=== PATIENT | female | born 1960 | race Caucasian/White ===

== ENCOUNTER 2018-08-15 13:02 | Day surgery (SDC) | payer BC, SELFPAY ==
--- NOTE | 2018-08-15 06:57 | W.COLOREPORT ---
Date of service: 08/15/18 Time of Service: 14:01 Colonoscopy Report Date of procedure: 08/15/18 Pre-op diagnosis general: Colon Cancer Screening Post-op diagnosis procedure note: same Procedure: Colonoscopy Surgeon: Rubina Armas Anesthesia proc note operative: other (General/ ASA 2/ Jose Maria Tong, CRISTHIAN ) Estimated blood loss (mL): 0 Pathology: none sent Complications: None Disposition: same day Indications: Mrs. Anglin is a pleasant 57 year old female who is here today for a screening colonoscopy. Her last Colonoscopy was in 2005 and was normal. Risks, benefits and complications have been reviewed. Complications include but are not limited to bleeding, pain, perforation, missed small lesion/polyp, sore throat, aspiration and adverse reaction to the medications. Questions were entertained and answered to their satisfaction and they wished to proceed. No guarantees were given or implied. Prep: Miralax/Dulcolax Procedure Start Time: 14:01 Procedure End Time: 14:42 Retraction Time: 17 Findings: Normal colon Very tortuous Procedure Description: After informed consent was obtained the patient was taken to the procedure room and placed in a left decubitous position. Monitors were applied and a time out was done. The patients name, date of , procedure, allergies to medications and metal in their body was reviewed. The patient was then sedated. Once sedated and comfortable a rectal exam was done. External exam was normal. Internal exam revealed a normal sphincter tone and no palpable masses. The scope was then introduced and retro-flexed. No internal hemorrhoids were identified. There were no masses or polyps in the rectum. The scope was then advanced to the cecum with some difficulty because of the colon being tortuous. The TI and appendiceal orifice were identified. The prep was good. The scope was then slowly retracted over 17 minutes back into the rectum. There were no polyps and no Diverticula. The scope was removed and the patient was woken up and taken back to Same day surgery in stable condition. The patient tolerated the procedure well and there were no immediate complications. Follow up: The patient should follow up in 10 years unless they develop changes in bowel habits or other new gastrointestinal complaints.
--- NOTE | 2018-08-15 06:59 | W.PM.DSUDISC ---
Discharge Plan Disposition Patient Disposition: HOME Condition: Good Discharge Details Reason For Visit: Colon Cancer Screening Attending Provider: Rubina Armas Primary Care Provider: Janee Mitchell Home Meds and New Rx's Prescriptions: Continued ascorbic acid (vitamin C) [Vitamin C] 500 MG capsule, extended release 500 mg PO DAILY RF: 0 cholecalciferol (vitamin D3) [Vitamin D3] 2,000 UNIT capsule 2,000 unit PO DAILY RF: 0 magnesium amino acid chelate 100 MG tablet 100 mg PO DAILY RF: 0 Female Hormonal Bal 2 cap PO .BEFORE MENSES RF: 0 Vitamin B 1 tab PO DAILY RF: 0 omega-3 fatty acids-fish oil 1 EACH capsule 2 ea PO DAILY RF: 0 garlic 300 mg Capsule 300 mg PO BID RF: 0 ginkgo biloba 120 mg Tablet 240 mg PO BID RF: 0 Discontinued polyethylene glycol 3350 17 gram/dose powder 238 g PO ONCE Qty: 238 RF: 0 bisacodyl [Dulcolax (bisacodyl)] 5 mg tablet,delayed release (DR/EC) 5 mg PO ONCE Qty: 4 RF: 0 Discharge Instructions Instructions: Colonoscopy (DC) Additional Instructions: Findings: Normal colon Follow up: 10 years Please call if you develop: fevers >101.5 Nausea or Vomiting Abdominal pain that is not transient DAY SURGERY UNIT POST COLONOSCOPY INSTRUCTIONS 1. Because there will be medication in your system for the next 24 hours, you may feel a little sleepy. Your coordination will be affected. Therefore: a. Do not drive or operate dangerous equipment for 24 hours. b. Do not drink alcohol beverages for 24 hours (not even beer). c. Plan to go home and rest for the day. 2. Generally there are no restrictions on your activity after a day or so has gone by, but you may feel a bit fatigued for a few days. 3 After you arrive home you may have a light meal and return to a normal diet as you can tolerate it without feeling sick to your stomach. 4. After surgery, you may feel pain or discomfort. This should be only transient, but if it persists please contact your doctor. 5. If there are any questions regarding the findings of your procedure, please feel free to contact your doctor. 6. If you are unable to contact your doctor with a problem, contact the hospital at [phone]. 7. Continue all your regular medications unless directed otherwise. I understand the above instructions and have no questions. Signature of Patient or Responsible Adult Escort Date/Time Name of Responsible Adult Escort Signature of Nurse Date/Time Activity:: Activity as Tolerated Diet:: As Tolerated Discharge Orders Discharge Orders: Discharge Order (Routine); Ordered 08/15/18 Ordered By: Rubina Armas DS: Diagnosis Discharge Diagnosis (1) S/P colonoscopy: Status: Acute
[2018-08-15 13:18] VITALS: BP 126/79; PULSE 64; RESP 16; TEMP 36.9; O2SAT 96
[2018-08-15] MEDS: Lactated Ringers 1,000 ML 80 ML IV (13:43)
[2018-08-15 15:20] VITALS: BP 106/61; PULSE 54; RESP 16; TEMP 36.7; O2SAT 100
== END 2018-08-15 16:24 | disposition home or self-care (01) ==
LOC: SUR 13:04
PROVIDERS: PCP Nurse Practitioner; Visit Provider Surgery
PROC: 0DJD8ZZ Inspection of Lower Intestinal Tract, Via Natural or Artificial Opening Endoscopic (ICD-10-PCS; CPT 45378; principal; 2018-08-15 12:30)
DX: Z12.11 Encounter for screening for malignant neoplasm of colon (principal); K63.89 Other specified diseases of intestine
CPT/HCPCS: 45378

== ENCOUNTER 2018-10-18 11:05 | Outpatient (REF) | payer BC, SELFPAY ==
[2018-10-18 22:31] LABS: ALT 50 U/L (12-78); AST 44 U/L (15-37); Albumin 3.8 g/dL (3.4-5.0); Alkaline Phosphatase 64 U/L (46-116); Anion Gap 11.3 mmol/L (3-11); BUN 17 mg/dL (7-18); Bilirubin, Total 0.4 mg/dL (0.2-1.0); CO2 24.7 mmol/L (21.0-32.0); CREATININE 0.74 mg/dL (0.55-1.02); Calcium 9.3 mg/dL (8.5-10.1); Chloride 106 mmol/L (98-107); Glucose 99 mg/dL (70-100); Potassium 4.7 mmol/L (3.5-5.1); Sodium 142 mmol/L (136-145); TSH (W/Ref FT4) 1.95 uIU/mL (0.358-3.74); Total Protein 6.4 g/dL (6.4-8.2)
[2018-10-18 23:01] LABS: Calculated LDL 141; Cholesterol 255 mg/dL (50-200); HDL Cholesterol 103 mg/dL (40-60); Triglyceride 57 mg/dL (30-150)
== END 2018-10-18 11:25 ==
LOC: NCHCN 11:05
PROVIDERS: PCP Nurse Practitioner; Visit Provider Nurse Practitioner
DX: Z00.00 Encounter for general adult medical examination without abnormal findings (principal); Z13.29 Encounter for screening for other suspected endocrine disorder; Z13.228 Encounter for screening for other metabolic disorders; Z13.220 Encounter for screening for lipoid disorders
CPT/HCPCS: 80053; 80061; 83721; 84443

== ENCOUNTER 2019-01-18 00:49 | Outpatient (CLI) | payer OTHER, SELFPAY ==
--- NOTE | 2019-01-18 08:15 | DI.MAMMO_ITS ---
EXAM: MG MAMMO SCREENING CLINICAL HISTORY: SCREENING, Z12.39. TECHNIQUE: Mammograms were interpreted according to the usual protocol including computer analysis w [employer] CAD system, tomosynthesis and C-view imaging. COMPARISON: No exams were available for comparison FINDINGS: The breast tissue is heterogeneously radiodense, which lowers the sensitivity of the study. There is no evidence of a dominant mass. There are no suspicious calcifications and there has been no signifi cant interval change when compared with prior images. IMPRESSION: No evidence of malignancy, category 1, yearly screening mammography is recommended. BI-RADS category C. BI-RADS Cat 1 - Negative Breast Density - Category C - Heterogeneously dense
== END 2019-01-18 01:09 ==
PROVIDERS: PCP Nurse Practitioner; Visit Provider Nurse Practitioner
DX: Z12.31 Encounter for screening mammogram for malignant neoplasm of breast (principal)
CPT/HCPCS: 77063; 77067

== ENCOUNTER 2019-06-27 18:20 | Emergency (ER) | payer OTHER, SELFPAY ==
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
[2019-06-27 18:24] VITALS: BP 114/96; PULSE 82; RESP 20; TEMP 36.8; O2SAT 100
[2019-06-27] MEDS: Normal Saline 1,000 ML 1000 ML IV (18:45)
[2019-06-27] MEDS: Ketorolac 30 MG/ML VIAL IVP (18:45)
[2019-06-27 18:52] LABS: Abs Immature Grans 0.01 k/cumm (0.0-0.09); Absolute Basophil Count 0.01 k/cumm (0.0-0.2); Absolute Eosinophil Count 0.03 k/cumm (0.0-0.7); Absolute Lymphocyte Count 1.07 k/cumm (1.2-3.4); Absolute Monocyte Count 0.71 k/cumm (0.11-0.7); Absolute Neutrophil Count 9.15 k/cumm (1.2-6.7); Basophils % 0.1; Eosinophils % 0.3; HCT 38.8 % (36.0-46.0); HGB 13.3 g/dL (12.0-15.5); Immature Grans % 0.1 %; Lymphocytes % 9.7; Mean Corp. HGB Concentration 34.3 g/dL (32.0-36.0); Mean Corpuscular Volume 96.3 fL (80-95); Mean Platelet Volume 9.5 fL (8.0-11.0); Monocytes % 6.5; Neutrophils % 83.3; Platelet Count 217 x1000/uL (130-400); RBC 4.03 m/cumm (4.00-5.20); RBC Distribution Width 12.3 % (11.7-14.6); White Blood Cell Count 10.99 k/cumm (4.4-10.8)
[2019-06-27] MEDS: HYDROmorphone 2 MG/ML VIAL 1 MG IVP (19:00)
[2019-06-27 19:04] LABS: ALT 43 U/L (14-59); AST 35 U/L (15-37); Albumin 4.2 g/dL (3.4-5.0); Alkaline Phosphatase 56 U/L (46-116); Anion Gap 13.2 mmol/L (3-11); BUN 15 mg/dL (7-18); Bilirubin, Total 0.7 mg/dL (0.2-1.0); CO2 23.8 mmol/L (21.0-32.0); CREATININE 0.88 mg/dL (0.55-1.02); Calcium 9.4 mg/dL (8.5-10.1); Chloride 102 mmol/L (98-107); Glucose 121 mg/dL (74-106); Potassium 3.1 mmol/L (3.5-5.1); Sodium 139 mmol/L (136-145); Total Protein 6.8 g/dL (6.4-8.2)
--- NOTE | 2019-06-27 19:20 | DI.CT_ITS ---
EXAM: CT RENAL COLIC WO CLINICAL HISTORY: severe right sided flank pain TECHNIQUE: Noncontrast COMPARISON: ABD/PELVIS WO W CONTRAST from 03/02/2016 FINDINGS: There is mild left hydronephrosis secondary to a stone in the distal ureter, just above the ureterov esical junction measuring 4-5 millimeters. There is mild stranding around the left ureter. A tiny n onobstructing stone is seen in the mid right kidney. There are no perinephric collections or evidenc e of a mass. Urinary bladder is nearly empty. The heart size is normal. The liver, gallbladder, spleen, pancreas and adrenals are unremarkable. T he appendix appears normal. There is a moderate to increased quantity of stool. There is no bowel w all thickening or dilatation. The uterus appears normal in size, decreasing when compared with the p revious exam. The ovaries are not definitely seen. The previously noted right-sided cystic pelvic m ass is no longer present. There are degenerative changes in the lumbar spine, greatest at L5-S1. IMPRESSION: Mild left hydronephrosis secondary to a 5 millimeter stone just above the ureterovesical junction.
--- NOTE | 2019-06-27 19:38 | DI.VRAD_ITS ---
PROCEDURE INFORMATION: Exam: CT Abdomen And Pelvis Without Contrast Exam date and time: 06/27/2019 6:33 PM Age: 58 years old Clinical indication: Abdominal pain; Lower; Prior surgery; Surgery date: 6+ months; Surgery type: Ovarian cyst removed, ; patient HX: Severe left flank pain per patient, nausea, TECHNIQUE: Imaging protocol: Computed tomography of the abdomen and pelvis without contrast. Radiation optimization: All CT scans at this facility use at least one of these dose optimization techniques: automated exposure control; mA and/or kV adjustment per patient size (includes targeted exams where dose is matched to clinical indication); or iterative reconstruction. COMPARISON: CT ABD/PELVIS WO W CONTRAST 03/02/2016 9:19 AM FINDINGS: Liver: Normal. No mass. Gallbladder and bile ducts: Normal. No calcified stones. No ductal dilation. Pancreas: Normal. No ductal dilation. Spleen: Normal. No splenomegaly. Adrenals: Normal. No mass. Kidneys and ureters: Left hydroureteronephrosis. There is a distal left ureteral calculus measuring 3 x 2 mm. This is just above the level of the bladder. There is mild stranding of the Periureteral fat proximally. No additional renal calculi are seen on the left side. Right kidney contains a punctate 1 mm nonobstructive central calculus. Stomach and bowel: Unremarkable. No obstruction. No mucosal thickening. Appendix: No evidence of appendicitis. Intraperitoneal space: Unremarkable. No free air. No significant fluid collection. Vasculature: Unremarkable. No abdominal aortic aneurysm. Lymph nodes: Unremarkable. No enlarged lymph nodes. Bladder: See Kidneys And Ureters Finding. Reproductive: Unremarkable as visualized. Bones/joints: Degenerative lumbar spine disease.. No acute fracture. Soft tissues: Unremarkable. IMPRESSION: 1. Left hydroureter with a distal ureteral 3 x 2 mm obstructing calculus. 2. Punctate 1 mm central nonobstructing right renal calculus. 3. Degenerative lumbar spine disease. No acute compression fractures. Dictated and Authenticated by: Eduardo De La Rosa MD. Ordering:JOSE Berry MD
[2019-06-27] MEDS: Tamsulosin 0.4 MG CAPCR PO (19:55)
[2019-06-27 20:48] LABS: Bilirubin Negative (Negative); Blood Moderate (Negative); Clarity Clear (Clear); Glucose Negative (Negative); Ketones 15 mg/dL (Negative); Leukocyte Esterase Moderate (Negative); Nitrite Negative (Negative); Specific Gravity 1.015 (1.005-1.025); Urobilinogen 0.2 EU/dL (Up TO 0.2); pH 8.5 (5-8)
[2019-06-27 21:03] LABS: Bacteria Moderate HPF (Negative); C & S Indicated? Yes; Epithelial Cells Few HPF (Negative); WBC 20-50 HPF (0-5)
[2019-06-27 21:18] LABS: Casts Negative LPF (Negative); Crystals Negative HPF (Negative); Mucus Negative (Negative)
[2019-06-27 21:32] VITALS: BP 124/76; PULSE 59; RESP 16; TEMP 37.1; O2SAT 98
[2019-06-27] MEDS: Cephalexin 500 MG CAP 1000 MG PO (21:35)
[2019-06-27] MEDS: HYDROmorphone 2 MG TAB PO (21:45)
== END 2019-06-27 21:40 | disposition home or self-care (01) ==
PROVIDERS: Emergency Provider Physician Assistant; PCP Nurse Practitioner
DX: N39.0 Urinary tract infection, site not specified (principal); N20.0 Calculus of kidney
CPT/HCPCS: 80053; 87077; 96361; 96374; 96375; 99285; 74176; 81003; 81015; 85025; 87086; 87186; 99284; J1885

== ENCOUNTER 2022-07-27 01:47 | Outpatient (CLI) | payer BC, SELFPAY ==
--- NOTE | 2022-07-27 | DI.MAMMO_ITS ---
Exam(s) MAMMO SCREENING EXAM: MAMMO SCREENING CLINICAL HISTORY: SCREENING MAMMO FOR BREAST CANCER Z12.39 TECHNIQUE: Mammograms were interpreted according to the usual protocol including computer analysis w [employer] CAD system, tomosynthesis and C-view imaging. COMPARISON: 2013 through 2018 FINDINGS: The breasts are composed of heterogeneously dense fibroglandular densities, Breast Density category C . No suspicious masses or suspicious microcalcifications are seen. No skin thickening or abnormal axillary lymph nodes are seen. There has been no significant change from prior exams. IMPRESSION: BI-RADS Category 1, Negative mammogram. Yearly screening mammography is recommended. Breast Density Category C, heterogeneously Dense. The mammogram demonstrates the patient's breast tissue is dense. Dense breast tissue is very common a nd is not abnormal but dense breast tissue can make it harder to find cancer on a mammogram. Also, de nse breast tissue may increase breast cancer risk. This information about the result of the mammogram report was provided to the patient to raise their awareness. Use this report when you speak with the patient about their risks for breast cancer, which includes their family history. At that time, you may recommend additional screening tests (Ultrasound or MRI) as they might be useful based on their r isk. A negative radiographic report should not delay biopsy if a dominant or clinically suspicious mass is present. Up to ten percent of cancers are not identified on mammography. A negative report may reinforce clinical impression. Adenosis and dense breasts may obscure an underlying neoplasm. False positive reports average 6 to 10%.
== END 2022-07-27 02:07 ==
LOC: DI 01:48
PROVIDERS: PCP Nurse Practitioner; Visit Provider Nurse Practitioner Family
DX: Z12.31 Encounter for screening mammogram for malignant neoplasm of breast (principal)
CPT/HCPCS: 77063; 77067

== ENCOUNTER 2022-08-12 14:25 | Outpatient (REF) | payer BC, SELFPAY ==
--- NOTE | 2022-08-12 13:40 | PAPFT_PTH ---
PATIENT: Miriam Hickman [id number] AGE/SX: 61/F ROOM: RE08/12/[address]: NEVIN BOATENG : 1960 BED: DIS: 08/12/2022 SPEC #: [id number] RECD: 08/13/22 12:54 STATUS: HUSSAIN REQ #: [id number] SINA: 08/12/22 13:[address]: Nevin Boateng DEPT: [facility] Cytology RECD BY: Shayla Omer ENTERED: 08/13/22 12:55 SP TYPE: PAPFT OTHR DR: Janee Mitchell Tissues: 1 - CX/ENDOCX FOR PAP SMEARS Procedures: PAP THIN PREP/UVM Screening HPV DNA PROBE Comments: [id number]
[2022-08-12 20:02] LABS: ALT 54 U/L (14-59); AST 41 U/L (15-37); Alkaline Phosphatase 66 U/L (46-116); Anion Gap 9.4 mmol/L (3-11); BUN 17 mg/dL (7-18); Bilirubin, Total 0.6 mg/dL (0.2-1.0); CO2 25.6 mmol/L (21.0-32.0); CREATININE 0.7 mg/dL (0.55-1.02); Calcium 9.8 mg/dL (8.5-10.1); Calculated LDL 149 mg/dL (<100); Chloride 107 mmol/L (98-107); Cholesterol 256 mg/dL (<200); Estimated GFR 97.72 (mL/min/1.73m2); Glucose 99 mg/dL (74-106); HDL Cholesterol 93 mg/dL (40-60); Potassium 4.3 mmol/L (3.5-5.1); Sodium 142 mmol/L (136-145); Total Protein 6.9 g/dL (6.4-8.2); Triglyceride 70 mg/dL (<150)
== END 2022-08-12 14:26 | disposition home or self-care (01) ==
LOC: NCHCN 14:25
PROVIDERS: PCP Nurse Practitioner; Visit Provider Nurse Practitioner Family
DX: Z13.220 Encounter for screening for lipoid disorders (principal); R79.89 Other specified abnormal findings of blood chemistry; Z00.00 Encounter for general adult medical examination without abnormal findings; Z12.4 Encounter for screening for malignant neoplasm of cervix; Z11.51 Encounter for screening for human papillomavirus (HPV)
CPT/HCPCS: 80053; 80061; 88142; 87624

== ENCOUNTER 2024-02-21 16:33 | Outpatient (REF) | payer BC, SELFPAY | END 2024-02-21 16:34 | disposition home or self-care (01) | LOC: LBN 16:33 | PROVIDERS: Visit Provider Nurse Practitioner Family | DX: N30.00 Acute cystitis without hematuria (principal) | CPT/HCPCS: 87077; 87086; 87186 ==

== ENCOUNTER 2024-02-23 13:16 | Outpatient (REF) | payer BC, SELFPAY ==
--- OUTSIDE RECORDS SUMMARY | 2024-02-23 13:18 | XMS_ITS | Encounter Summary ---
[facility] [place] [address] Care Team Providers Care Vocational Rehabilitation Teacher Name Role Phone JimmieJanee hunter APRN Primary Care Provider Reason for Visit * Reason Onset Date Comments Abdominal Pain 04/10/2016 Encounter Details Date Type Department Care Team (Late st Contact Info) Description 04/10/2016 Telephone [place] [id number] Tiffanie Cobos, RN Abdominal Pain Social History Tobacco Use Types Packs/Day Years Used Date Smoking Tobacco: Former Cigarettes 0.1 3 1 05/12/1982 - 03/12/1986 Smokeless Tobacco: Never Alcohol Use Standard Drinks/Week Comments Yes 14 (1 standard drink = 0.6 oz pu re alcohol) Sex and Gender Information Value Date Recorded Sex Assigned at Not on file Gender Identity Not on file Sexual Orientation Not on file documented as of this encounter Miscellaneous Notes * Telephone Encounter - Tiffanie Cobos RN - 04/10/2016 4:14 PM EST Caller: Miriam Rawls Learning Needs Assessment Reviewed: Yes Subjective Patient presents with: Abdominal Pain Objective/Assessment Symptom onset: this week Location: mid-abdomen Duration: 4 days Characteristics: cramping in mid abdomen, below navel above pubic bone Aggravating factors: n/a Relieving factors: n/a Timin days postop Severity: mild Pertinent Past Medical History: 03/23/2016 laparoscopic bilateral salpingo- oophorectomy, removal ofadnexal masses ?? Plan Intervention/Plan/ Follow Up: Maddie reports she has the cramping that just feels odd. She has not taken ibuprofen or acetaminophen in a while and doesn't feel this cramping warrants taking anything. She started back to yoga and does do exercises for core strength but hasn't been doing sit-ups oranything. She has been eating, voiding, and having bowel movements without difficulty. Has not had any vaginal bleeding. Reassured Maddie that her yoga was probably fine. She will call the clinic if cramping worsens or if she has another question/concern. documented in this encounter Plan of Treatment Not on file documented as of this encounter Visit Diagnoses Not on filedocumented in this encounter Care Teams Vocational Rehabilitation Teacher Relationship Specialty Start Date End Date Janee Mitchell APRN [address] [place] [address] PCP - General Family Medicine 03/12/16 documented as of this encounter
--- OUTSIDE RECORDS SUMMARY | 2024-02-23 13:18 | XMS_ITS | Encounter Summary ---
Author Organization [facility] Address [facility] [place] [address] Care Team Providers Care School Teacher Name Role Phone Janee Mitchell APRN Primary Care Provider Encounter Details Date Type Department Care Team (Latest Contact Info) Description 10/19/2016 8:19 AM EDT - 10/19/2016 11:59 PM EDT Hospital [place] [address] Janee Mitchell APRN [address] [place] [address] Encounter for screening mammogram for breast cancer Discharge Disposition: Home Social History Tobacco Use Types Packs/Day Years [...] on file documented as of this encounter Medications at Time of Discharge Medication Sig Dispensed Refills Start Date End Date acetaminophen (TYLENOL) 500 mg Tablet Take 2 tablets by mouth every 6 hours as needed for Pain. 1 03/23/2016 ibuprofen (ADVIL;MOTRIN) 600 mg Tablet Take 1 tablet by mouth every 6 hours as needed for Pain. 03/23/2016 MILK THISTLE ORAL Take by mouth as needed. AA COMB.NO3/B/MV-AO4/MN/MIN AA (B [id number] COMB3-AO CB4 ORAL) Take by mouth as needed. JANIA'S WORT ORAL Take by mouth as needed. MAGNESIUM CARBONATE ORAL Take by mouth. MULTIVITAMIN ORAL 11/12/2009 documented as of this encounter Plan of Treatment Not on file documented as of this encounter Procedures Procedure Name Priority Date/Time Associated Diagnosis Comments MAMMO SCREENING CAD AND ARTHUR BILATERAL Routine 10/19/2016 8:39 AM EDT Encounter for screening mammogram for breast cancer documented in this encounter Results * Mammo Screen CAD and Arthur Bilat (Generic) (10/19/2016 8:39 AM EDT) Anatomical Region Laterality Modality Breast Bilateral Mammography Narrative 10/19/2016 8:48 AM EDT BILATERAL MAMMOGRAPHY REASON FOR EXAM: Screening TECHNIQUE: CC and MLO views were obtained of each breast using standard 2-D mammography as well as 3-D tomosynthesis. Computer aided detection was used. This is compared with prior images. FINDINGS: ??The breasts are heterogeneously dense, which may obscure small masses. There are no suspicious microcalcifications, masses, or areas of distortion. The pattern is stable. CONCLUSION: No mammographic evidence of malignancy. RECOMMENDATION: The [employer] [place] [employer] and The Society of Breast Imaging recommend annual screening beginning at age 40 for the general female population. Screening should continue as long as a woman is in good health and is expected to live 10 more years or longer. All women should be familiar with the known benefits, limitations, and potential harms linked to breast cancer screening. They should also know how their breasts normally look and feel and report any breast changes to a health care provider right away. Some women - because of their family history, a genetic tendency, or certain other factors - should be screened with MRIs along with mammograms. (The number of women who fall into this category is very small.) The patient and health care provider should discuss the patient history and decide if earlier screening and breast MRI are appropriate. A result letter has been sent to this patient by [facility]. BIRADS CATEGORY 1: NEGATIVE Janee Mitchell BUTT WELDER IMG MAMMO ORDERABLES documented in this encounter Visit Diagnoses Diagnosis Encounter for screening mammogram for breast cancer documented in this encounter Care Teams School Teacher Relationship Specialty Start Date End Date Janee Mitchell APRN [address] [place] [address] PCP - General Family Medicine 03/12/16 documented as of this encounter
--- OUTSIDE RECORDS SUMMARY | 2024-02-23 13:18 | XMS_ITS | Clinical Summary ---
Author Organization [facility] Address [facility] [place] [address] Care Team Providers Care Cable Mock Up Assembler Name Role Phone Stephen Janee LOCKE Primary Care Provider Allergies Active Allergy Reactions Criticality Noted Date Comments Chlorpheniramine-Phenylpropan Itching 2015 Hymenoptera Allergenic Extract Other (See Comments) 03/23/2016 Swelling Medications Medication Sig Dispensed Refills Start Date End Date Status MULTIVITAMIN ORAL 11/12/2009 Active MAGNESIUM CARBONATE ORAL Take by mouth. Active MILK THISTLE ORAL Take by mouth as needed. Active AA COMB.NO3/B/MV-AO4/MN/M IN AA (B [id number] COMB3-AO CB4 ORAL) Take by mouth as needed. Active JANIA'S WORT ORAL Take by mouth as needed. Active acetaminophen (TYLENOL) 500 mg Tablet Take 2 tablets by mouth every 6 hours as needed for Pain. 1 03/23/2016 Active ibuprofen (ADVIL;MOTRIN) 600 mg Tablet Take 1 tablet by mouth every 6 hours as needed for Pain. 03/23/2016 Active Active Problems Problem Noted Date Diagnosed Date Abnormal LFTs 10/27/2015 Resolved Problems Problem Noted Date Diagnosed Date Resolved Date Ovarian cystadenoma 04/20/2016 04/21/20 16 Pelvic mass in female 03/12/20162015 h/o ASCUS 10/27/2015 04/21/2016 Social History Tobacco Use Types Packs/Day Years Used Date Smoking Tobacco: Former Cigarettes 0.1 3 1 05/12/1982 - 03/12/1986 Smokeless Tobacco: Never Alcohol Use Standard Drinks/Week Comments Yes 14 (1 standard drink = 0.6 oz pu re alcohol) Sex and Gender Information Value Date Recorded Sex Assigned at Not on file Gender Identity Not on file Sexual Orientation Not on file Last Filed Vital Signs Vital Sign Reading Time Taken Comments Blood Pressure 116/59 04/20/2016 3:49 PM EST Pulse 69 04/20/2016 3:49 PM EST Temperature 37.1 ??C (98.8 ??F) 03/23/2016 5:00 PM ES T Respiratory Rate 16 03/23/2016 6:00 PM EST Oxygen Saturation 100% 04/20/2016 3:49 PM EST Inhaled Oxygen Concentration - - Weight 68.3 kg (150 lb 9.2 oz) 04/20/2016 3:49 P M EST Height 172.7 cm (5' 7.99) 04/20/2016 3:49 PM ES T Body Mass Index 22.9 04/20/2016 3:49 PM EST Plan of Treatment Health Maintenance Due Date Last Done Comments CT Colonography 1959 Colonoscopy 1959 Colorectal Cancer Screening 1959 FIT DNA 1959 FIT 1959 Sigmoidoscopy (10 year) with FIT yearly 1959 Sigmoidoscopy 1959 Tetanus/Diphtheria/Pertussis Vaccines (1 - Tdap) 09/24 HPV test 09/24/1989 PAP Smear 09/24/1989 Breast Cancer Share Decision Needed 1999 Zoster vaccine (1 of 2) 09/24/2009 Advance Directive 09/24/2014 Breast Cancer screening 10/19/2018 10/19/2016 Covid-19 Vaccine (1 - season) 2024 Influenza (Flu) vaccine (1 o f 1 - Influenza standard series) 01/02/2024 HIV screen Completed 10/17/2015 Hepatitis C Screening Completed 10/17/2015 Procedures Procedure Name Priority Date/Time Associated Diagnosis Comments MAMMO SCREENING CAD AND ARTHUR BILATERAL Routine 10/19/2016 8:39 AM EDT Encounter for screening mammogram for breast cancer EXTERNAL LAB INFECTIOUS DISEASE RESULTS PANEL Routine 10/17/2015 from Last 3 Months or Most Recently Relevant to Health Maintenance Results * Mammo Screen CAD and Arthur [...] No mammographic evidence of malignancy. RECOMMENDATION: The [place] [employer] and The Society of [...] Center. BIRADS CATEGORY 1: NEGATIVE Janee Mitchell APRN IM MAMMO ORDERABLES * (ABNORMAL) Infectious Disease External Results (10/17/2015) HIV 1/2 Ab neg(External Lab) Hepatitis B Surface Antibody neg Hepatitis B Core Antibody neg Hepatitis B Surface Antigen Negative Hepatitis C Antibody neg 10/17/2015 Historical Provider MD POINT OF CARE JOSE T ORDERABLES from Last 3 Months or Most Recently Relevant to Health Maintenance Advance Directives * Full Code (Latest Code Status on File) Date Activated Date Inactivated Comments 03/23/2016 1:06 PM 03/23/2016 10:10 PM Question Answer Comments Does patient have capacity to make decision: Yes * Full Code Date Activated Date Inactivated Comments 03/23/2016 11:23 AM 03/23/2016 1:06 PM Question Answer Comments Does patient have capacity to make decision: Yes Care Teams Cable Mock Up Assembler Relationship Specialty Start Date End Date Janee Mitchell, RN WOUND [address] [place] [address] PCP - General Family Medicine 03/12/16
--- OUTSIDE RECORDS SUMMARY | 2024-02-23 13:18 | XMS_ITS | Encounter Summary ---
Author Organization [facility] Address [facility] [place] [address] Care Team Providers Care Assistant Commissioner Name Role Phone JimmieJanee hunter APRN Primary Care Provider Reason for Visit * Reason Comments Post Op Encounter Details Date Type Department Care Team (Late st Contact Info) Description 04/20/2016 3:30 PM EST Office Visit [place] [id number] Helene Manriquez MD [facility] DR GYNECOLOGY [place] [address] Ovarian cystadenoma, unspecified laterality (Primary Dx); Pelvic mass in female; Surgical menopause; Hemorrhagic ovarian cyst Social History Tobacco Use Types Packs/Day Years [...] on file documented as of this encounter Last Filed Vital Signs Vital Sign Reading Time Taken Comments Blood Pressure 116/59 04/20/2016 3:49 PM EST Pulse 69 04/20/2016 3:49 PM EST Temperature - - Respiratory Rate - - Oxygen Saturation 100% 04/20/2016 3:49 PM EST Inhaled Oxygen Concentration - - Weight 68.3 kg (150 lb 9.2 oz) 04/20/2016 3:49 P M EST Height 172.7 cm (5' 7.99) 04/20/2016 3:49 PM ES T Body Mass Index 22.9 04/20/2016 3:49 PM EST documented in this encounter Progress Notes * Shanthi Tamayo MD - 04/20/2016 3:30 PM EST Division of [place] [address] Follow-Up Visit: Postoperative Visit: Patient Active Problem List Diagnosis Code ??? Abnormal LFTs R79.89 ??? h/o ASCUS R87.610 ??? Pelvic mass in female R19.00 Subjective: Miriam Rawls returns to the office today for her postoperative visit. On 03/23/2016 she underwent a laparoscopic bilateral salpingo-oophorectomy, removal of adnexal masses. Her postoperativecourse was uncomplicated. She has been doing well since surgery aside from some fatigue. She has not needed narcotic pain medications and is having regular bowel movements. She is eating well and is back to doing some yoga. She does report some mild cramping in the afternoon after she started yoga but did not have any sharp pains. No hot flushes, night sweats. Mild heat intolerance. Having vague sensation of mood changes that she has difficulty putting into words. ROS: She denies fevers, chills, dysuria, incisional concerns, abdominal pain, vaginal bleeding, nausea, vomiting or diarrhea. All systems reviewed and are otherwise negative. Objective: Vitals: 04/20/16 1549 BP: 116/59 Pulse: 69 SpO2: 100% Weight: 68.3 kg (150 lb 9.2 oz) Height: 172.7 cm (5' 7.99) Body mass index is 22.9 kg/(m^2). Body surface area is 1.81 meters squared. Physical Exam Constitutional: She is oriented to person, place, and time. She appears well- developed and well-nourished. HENT: Head: Normocephalic and atraumatic. Eyes: Pupils are equal, round, and reactive to light. Neck: Normal range of motion. Neck supple. Abdominal: Soft. She exhibits no distension. There is no tenderness. 3 port incisions are well-healing Musculoskeletal: Normal range of motion. Neurological: She is alert and oriented to person, place, and time. Skin: Skin is warm and dry. Psychiatric: She has a normal mood and affect. Surgical Pathology: 03/23/2016 DIAGNOSIS A - Right tube and ovary, salpingo-oophorectomy: - Ovarian mucinous cystadenoma. - Benign fallopian tube with fimbria adherent to ovary. B - Left fallopian tube and ovary, salpingo-oophorectomy: - Ovary with hemorrhagic corpus luteum and simple inclusion cysts. - Benign fallopian tube with paratubal cyst. Pelvic washings: DIAGNOSIS Negative for Malignancy Assessment and Plan: Miriam Rawls is a 55 y.o. with a benign right mucinous cystadenoma and a benign left hemorrhagic corpus luteal cyst. It does not appear that she had exacerbated menopausal symptoms. She is doing well postoperatively and is advised that she may resume full activities at 6 weeks postoperatively. I reviewed her pathology with her and have given her copies of her pathology report and operative note for her records. Given the benign nature of her disease, she thankfully does not require any further gynecologic oncology care and is kindly referred back to her usual providers for ongoing care. Patient seen and evaluated with attending DEICER INSPECTOR PNEUMATIC ONC HSANTHI Bella MD PGY-3 CC: Dr. Gianna Castañeda I have seen and examined the patient and reviewed and edited the resident's above history and I agree with the details as written. The assessment and plan were formulated in discussion with me and I agree with them as documented. Helene Manriquez MD documented in this encounter Plan of Treatment Not on file documented as of this encounter Visit Diagnoses Diagnosis Ovarian cystadenoma, unspecified laterality- Primary Pelvic mass in female Abdominal or pelvic swelling, mass or lump, unspecified site Surgical menopause Symptomatic states associated with artificial menopause Hemorrhagic ovarian cyst Other and unspecified ovarian cyst documented in this encounter Care Teams Assistant Commissioner Relationship Specialty Start Date End Date Janee Mitchell, DELIVERY DRIVER [address] [place] [address] PCP - General Family Medicine 03/12/16 documented as of this encounter
--- OUTSIDE RECORDS SUMMARY | 2024-02-23 13:18 | XMS_ITS | Encounter Summary ---
Author Organization Formerly [facility], [facility] Address [facility] [place] [address] Care Team Providers Care Booster Pump Oiler Name Role Phone DariaJanee smith CORNELIA Primary Care Provider [phone] Reason for Visit * Auth/Cert Specialty Diagnoses / Procedures Referred By Contjosh t Referred To Contact Diagnoses Intra-abdominal and pelvic swelling, mass and lump, unspecified site PELVIC MASS Procedures PRO LAP, RMV ADNEXAL STRUCTURE PRO TOTAL ABDOM HYSTERECTOMY PRO REMOVAL, ABDOMEN LYMPH NODE, STAGING LAPAROSCOPY, REMOVAL OF ADNEXA @HYSTERECTOMY, TOTAL ABD., W W/O BSO @LYMPHADENECTOMY, LIMITED FOR STAGING, RETROPERITONEAL Referral ID Status Reason Start Date Expiration Date Visits Re quested Visits Authorized [id number] 1 1 Encounter Details Date Type Department Care Team (Late st Contact Info) Description 03/23/2016 1:30 PM EST - 03/23/2016 4:58 PM EST Surgery [place] [address] Helene Manriquez MD [facility] [place] [address] @SALPINGO-OOPHORECTOMY , UNILATERAL OR DAVID (WRVU 12.16) Social History Tobacco Use Types Packs/Day Years [...] Sign Reading Time Taken Comments Blood Pressure 144/87 03/23/2016 1:06 PM EST Pulse 62 03/23/2016 1:06 PM EST Temperature 36.4 ??C (97.5 ??F) 03/23/2016 1:06 PM ES T Respiratory Rate 18 03/23/2016 1:06 PM EST Oxygen Saturation 100% 03/23/2016 1:06 PM EST Inhaled Oxygen Concentration - - Weight 63.5 kg (140 lb) 03/23/2016 1:06 PM EST Height 172.7 cm (5' 8) 03/23/2016 1:06 PM EST Body Mass Index 21.29 03/23/2016 1:06 PM EST documented in this encounter Discharge Instructions * Discharge Instructions* Zara Enrique RN - 03/23/2016 5:14 PM EST POST ANESTHESIA INSTRUCTIONS Go home, rest, use caution on stairs. Change positions slowly. Do not smoke if you are alone. Diet light to regular as tolerated today. If nausea occurs start with clear liquids and progress slowly. No driving, operating machinery, alcoholic beverages and no important decisions for 24 hours. Monitor IV site for signs and symptoms of infection: increasing redness, swelling, foul drainage, if occurs contact M.D. Patients who have had endotrachial tubes (this tube, used by anesthesia department, is passed down your throat after you are asleep, to ensure safe air passage during your operation). A sore throat is normal due to the tube. Cold liquids or soothing lozenges will help ease the discomfort. The generalized muscle aches are due to the medication given to you just before the tube is inserted. As the medication wears off, you may develop muscle soreness, which usually goes away in 12-24 hours. * Patient Instructions* Silvana Barcenas - 03/23/2016 5:04 PM EST PATIENT DISCHARGE INSTRUCTIONS Our secretary to the vice president will call you to schedule you post-operative appointment in 3-[address] Manriquez Gynecology Oncology phone number: [phone] Call your doctor if you develop: --A fever over 101 degrees --Severe pain --Heavy vaginal bleeding --Increasing pain, redness, or discharge at your incision --It is normal to have light spotting from the vagina Activity level: No heavy lifting, pushing or pulling for 3 weeks. No sexual intercourse, no tampons, nothing in the vagina for 8 weeks. Diet: You may resume your regular diet. Be sure you drink plenty of fluids. Please use tamika-colace 1-2 tablets twice daily for the entire time that you are taking pain medication to keep your bowel movements soft and regular. If you are constipated or have not had a bowel movement in 3 days, pleaseuse milk of magnesia (or miralax) as directed over the counter. Driving: Do not drive until you are off of all narcotic medications and you are not feeling pain; usually about 2 weeks. Shower/Bath: Showering is fine. Short baths are OK but you should avoid having any abdominal incision submerged for more than 10-15 minutes for the next 2 weeks. Wound Care: Your incisions are closed with dissolvable stiches and surgical glue. The glue will start to peel off in 2-3 weeks, do not pick or rub them prior to this. The stitches do not need to be removed-- they will dissolve on their own. Pain medications include ibuprofen (Advil/Motrin), acetaminophen (Tylenol), and oxycodone ??? Please use ibuprofen 600 mg every 6 hours with food around the clock for the next several days and then after that use it only as needed. ??? You may use Tylenol over the counter as prescribed. Do not exceed 3000mg of Tylenol (acetaminophen) from any source in a 24 hour period. ??? Please use the oxycodone every 3-4 hours as needed for pain that breaks through the ibuprofenand acetaminophen. Please take your medication exactly as prescribed. Read all instructions that come with your medication. ?? Using narcotic pain medication (such as oxycodone, hydromorphone (Dilaudid), morphine, fentanyl,or tramadol) may cause addiction. While addiction is more common in people with a personal or family history of addiction, it can occur in anyone. ?? Taking more than the prescribed amount of medication or using with alcohol or other drugs can cause you to stop breathing resulting in coma, brain damage, or . ?? Opioids (oxycodone, hydromorphone/Dilaudid, morphine, fentanyl, tramadol) can slow reaction time, cause drowsiness, or cloud judgement. It is unsafe for you to drive or operate heavy machinery while taking this medication. ?? Opioids (oxycodone, hydromorphone/Dilaudid, morphine, fentanyl, tramadol) are at risk of being diverted by anyone with access to your home. Opioids should be stored in a safe and secure place, such as a locked cabinet or safe. ?? Unused opioids (oxycodone, hydromorphone/Dilaudid, morphine, fentanyl, tramadol) should be disposed of according to the label or patient information. If there are no specific instructions, medications may be returned to a take- back location or mixed with a small amount of water and an undesirable waste substance such as coffee grounds or cat litter. documented in this encounter Medications at Time of Discharge Medication Sig Dispensed Refills Start Date End Date acetaminophen (TYLENOL) 500 mg Tablet Take 2 tablets by mouth every 6 hours as needed for Pain. 1 03/23/2016 ibuprofen (ADVIL;MOTRIN) 600 mg Tablet Take 1 tablet by mouth every 6 hours as needed for Pain. 03/23/2016 MILK THISTLE ORAL Take by mouth as needed. AA COMB.NO3/B/MV-AO4/MN/VA N AA (B OILRKGG-JFF-VL COMB3-AO CB4 ORAL) Take by mouth as needed. JANIA'S WORT ORAL Take by mouth as needed. MAGNESIUM CARBONATE ORAL Take by mouth. MULTIVITAMIN ORAL 11/12/2009 oxyCODONE (ROXICODONE) 5 mg Tablet Take 1 tablet by mouth every 4 hours as needed for Pain. 10 tablet 03/23/2016 04/20/2016 documented as of this encounter Progress Notes * Zara Enrique RN - 03/23/2016 7:47 PM EST Up to BR - voided qs. documented in this encounter H&P Notes * Helene Manriquez MD - 03/23/2016 1:06 PM EST Inpatient EMISSIONS TESTING AND REPAIR TECHNICIAN - Admission Interval Note I have reviewed the pre-procedure H&P completed by Dr. Manriquez on 03/12/2016. (X) Condition unchanged since H&P originally performed. OR ( ) Condition changed since H&P originally performed. See interval note below. Interval Note: Miriam Rawls is a 55 y.o. female seen with a symptomatic large, cystic pelvic mass here for laparoscopic removal of the mass with bilateral salpingectomy and possible staging/possible open surgery. Vitals: 03/23/16 1306 BP: 144/87 Pulse: 62 Resp: 18 Temp: 36.4 ??C (97.5 ??F) Gen: Pleasant. Resting comfortably in bed. NAD. Neuro: Alert and oriented. Cardiac: RRR. No murmurs, rubs, or gallops. Pulm: CTAB. No wheezes, rales, or rhonci. Abd: +BS. Soft. Non tender. No rebound or guarding. Extremities: No lower extremity edema. Proceed to OR A copy of this document will be sent to the patient's Primary Care Physician and/or Referring Physician. SILVANA BARCENAS MD 03/23/2016 I have seen and examined the patient and reviewed and edited the resident's above history and I agree with the details as written. The assessment and plan were formulated in discussion with me and I agree with them as documented. Helene Manriquez MD documented in this encounter Miscellaneous Notes * Brief Op Note - Helene Manriquez MD - 03/23/2016 4:58 PM EST Brief Operative Note Patient Name: Miriam Rawls : [id number] MR#: [id number] Case Date: 03/23/2016 Surgeon: Surgeon(s) and Role: * Helene Manriquez MD - Primary * Silvana Barcenas MD Preoperative diagnosis: PELVIC MASSES Postoperative diagnosis: PELVIC MASSES Procedure(s): LAPAROSCOPIC BILATERAL SALPINGO-OOPHORECTOMY WITH WASHINGS Anesthesia: General Findings: 13 cm right ovarian mass, collapsed left ovarian cyst, globally enlarged uterus. Normal appendix, normal intestinal and peritoneal and hepatic surfaces aside from adhesions of the transverse colon/omentum to the right upper quadrant. 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 Condition: doing well without problems Infection Bundle used? N/A Attestation: Case Date: 03/23/2016 I was present and I participated during the entire procedure (does not need to include opening and closing). (Please see the Surgical Encounter Summary for any Implant and Specimen details pertinent to this patient.) * Op Note - Helene Manriquez MD - 03/23/2016 4:55 PM EST [facility] Patient Name: Miriam Rawls : [id number] MR#: [id number] Case Date: 03/23/2016 Surgeon: Surgeon(s) and Role: * Helene Manriquez MD - Primary * Silvana Barcenas MD Preoperative diagnosis: Bilateral complex adnexal masses Postoperative diagnosis: Bilateral complex adnexal masses Procedure(s): laparoscopic bilateral salpingo-oophorectomy, removal of adnexal masses Findings: 13 cm right ovarian mass, collapsed left ovarian cyst, globally enlarged uterus. Normal appendix, normal intestinal and peritoneal and hepatic surfaces aside from adhesions of the transverse colon/omentum to the right upper quadrant. 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 Condition: doing well without problems (Please see the Surgical Encounter Summary for any Implant and Specimen details pertinent to this patient.) HPI/Surgical Indications: Miriam Rawls is a 55 y.o. female seen for evaluation of a symptomatic large, cystic pelvic mass. The patient first noticed a mass in her abdomen around October. She was also having irregular menses around this time and had a pelvic US done which revealed a large, septated pelvic mass. She then had a CT done which confirmed a 13 cm septated pelvic mass with subtle thickening of the septations. CA 125 was normal at 11.Given these findings, the decision was made to proceed with surgical exploration. Procedure Description: She was taken to the OR with IV fluid running and ICDs in place. General anesthesia was obtained without difficulty. The patient was placed in the dorsal lithotomy position with Yellofin Stirrups. The patient was prepared and draped in the usual sterile fashion. A Time Out was performed and all members of the team were in agreement to proceed. A almanza catheter was inserted. A speculum was placed into the vagina. The anterior lip of the cervix was grasped with a single tooth tenaculum. The uterus was sounded to 8 cm. A uterine manipulator was introduced. Sterile gloves were changed and attention was then turned to the abdomen. A vertical skin incision was made across the umbilical folds. A Veress needle was used to enter the peritoneal cavity. Insufflation at high flow was attached with an opening pressure of 2 mm Hg. A 12 mm trocar was inserted into the abdomen. Intra abdominal placement was confirmed with the laparoscope. The pneumoperitoneum was established with CO2 gas to a pressure of 15 mmHg. Two 5 mm trocars were inserted in the bilateral lower quadrants under direct visualization with laparoscope. Trendelenburg position was obtained to facilitate pelvic exposure. The right adnexal mass filled the pelvis. The fallopian tube was elevated away from the pelvic sidewall with an atraumatic g rasper. The right ureter was clearly identified. The right infundibulopelvic ligament was grasped adjacent to the ovary, and the LigaSure was used to divide the IP ligament. The mass was adherent to the uterine sidewall, and further dissection with a LigaSure was used to remove the right tube, ovary, and mass, adjacent to the right uterine cornua. Vascular pedicles were noted to be dry. Laparoscope was removed from the umbilical incision and a 5 mm scope was placed in the right sided incision. An endo-catch bag was introduced into the abdomen through the umbilical incision, which required extension of the incision by 5 mm. The specimen was placed in the endo-catch bag and brought to the skin surface. The endo-catch bag was opened. A needle was used to rupture the cyst within thebag in order to remove the specimens from the abdomen. The specimens were sent to pathology for frozen section. Attention was then turned to the left side where the ureter was clearly identified and the fallopian tube and ovary were removed in a similar fashion. Vascular pedicles were again noted to be hemostatic. The specimen was removed via an endo-catch bag. A second look was taken in the abdomen and all pedicles remained hemostatic. All instruments were removed, followed by the trochars. The fascia of the 12 mm port incision was closed with 0 Vicryl. The skin was closed with subcuticular 4-0 Monocryl and Dermabond. All instruments were removed from the vagina. The patient tolerated the procedure well. The almanza was removed at the end of the procedure. Sponge, lap, and needle counts were correct times two. The patient was taken to the Recovery Roomin stable condition. Dr. Manriquez Attending were present and scrubbed for the entire procedure without intervening responsibility. SILVANA BARCENAS MD PGY4 03/23/2016 Infection Bundle used? N/A I, Helene Manriquez MD, attest that I performed this surgery with the assistance of a resident. Iwas present and participated in the entire surgery, from start to finish, as the primary and attending surgeon of record. documented in this encounter Plan of Treatment Not on file documented as of this encounter Procedures Procedure Name Priority Date/Time Associated Diagnosis Comments SPECIMEN TO PATHOLOGY Routine 03/23/2016 3:35 PM EST SPECIMEN TO PATHOLOGY STAT 03/23/2016 2:59 PM EST SURGICAL PATHOLOGY REPORT Routine 03/23/2016 2:56 PM EST NON-CONCRETE TESTER FINAL REPORT Routine 03/23/2016 2:49 PM EST CYTOPATHOLOGY NON-GYNECOLOGICAL Routine 03/23/2016 2:49 PM EST @SALPINGO-OOPHORECTOMY , UNILATERAL OR DAVID (WRVU 12.16) 03/23/2016 1:52 PM EST PELVIC MASS LYME IGG & IGM ANTIBODY Routine 03/23/2016 12:53 PM EST Pelvic mass in female HEPATIC FUNCTION PANEL Routine 6 12:53 PM EST Pelvic mass in female documented in this encounter Results * Specimen to Pathology (surgical or derm) (03/23/2016 3:35 PM EST) AP Specimen 03/23/2016 3:35 PM EST 03/23/2016 3:35 PM EST Narrative [facility] - 03/23/2016 3:35 PM EST Specimen requisition ordered. ??Separate Pathology report to follow Helene Manriquez MD PATHOLOGY/CYTOLOGY O PANCHO Performing Organization Address [facility] Co de Phone Number [facility] [place] [address] * Specimen to Pathology (surgical or derm) (03/23/2016 2:59 PM EST) AP Specimen 03/23/2016 2:59 PM EST 03/23/2016 2:59 PM EST Narrative [facility] - 03/23/2016 2:59 PM EST Specimen requisition ordered. ??Separate Pathology report to follow Helene Manriquez MD PATHOLOGY/CYTOLOGY O RDLOUIS [facility] [place] [address] * Surgical Pathology Report (03/23/2016 2:56 PM EST) Final Diagnosis [id number] ?Location: [facility]; [facility]; A The signing pathologist has (i) examined the relevant preparation(s) for the specimen(s) and (ii) rendered or confirmed the diagnosis(es). . ?Surgical Pathology DIAGNOSIS A - Right tube and ovary, salpingo-oophorec jess: - Ovarian mucinous cystadenoma. - Benign fallopian tube with fimbria adherent to ovary. B - Left fallopian tube and ovary, salpingo-oophorec jess: - Ovary with hemorrhagic corpus luteum and simple inclusion cysts. - Benign fallopian tube with paratubal cyst. CR-0 Electronically signed by: ??Anabell ELIZONDO, Rita Pandya Verified: ??03/30/2016 ?Pathologist CLINICAL INFORMATION Specimen Submitted: A - Right Tube and Ovary Cancer for frozen section B - Left fallopian tube and ovary ? malignancy for frozen section Clinical History: Pelvic mass Clinical diagnosis: Same FROZEN SECTION Frozen section(s) performed. ??Please refer to separate electronic frozen section report(s). SPECIMEN PROCESSING A - ??Labeled/Fixativ e: Right tube and ovary,? ??Cancer, fresh. Qty/Size/Weight: Single, 15.0 x 8.0 x 1.2 cm, 60 g overall. Specimen Description: Right salpingo-oophorec jess, received open. ??Frozen section performed on ovary (AFS 1) and cystic tissue (AFS 2). OVARY Size: 10.0 x 6.0 x 5.2 cm. External Surface: Tense, stretched smooth white serosa with no lesions. Cut Surface: Entire ovary is expanded by cystic lesion appearing uniloculated with cyst wall approximately 0.2 cm and no excrescences, expressing clear yellow fluid. No normal ovarian parenchyma is appreciable. FALLOPIAN TUBE Size: 1.6 cm x 0.1 cm segment of discernible tubal tissue, unremarkable in appearance, no fimbria noted. SECTIONS/PROCESSI NG: (1)AFS 1 remnant; (2) AFS 2 remnant; (3) maintenance representative tube; (4-13) ovary with cyst.(R13) B - ??Labeled/Fixativ e: Left fallopian tube and ovary,?malignancy , fresh. Qty/Size/Weight: Single, 6.0 x 4.5 x 3.0 cm, 9 g overall. Specimen Description: Intact left salpingo-oophorec jess. ??Frozen section performed on ovary, BFS 1 and BFS 2. OVARY Size: 3.5 x 1.5 x 1.0 cm. External Surface: White, cerebriform external surface with no lesions. Cut Surface: There is a 0.6 x 0.4 cm clear fluid-filled cyst on cut surface, remaining parenchyma is white-yellow and homogenous. . SPECIMEN PROCESSING FALLOPIAN TUBE Size: 5.5 x 0.3 cm. External Surface: Smooth purple serosal surface with multiple clear fluid filled paratubal cysts and unremarkable fimbria. SECTIONS/PROCESSI NG: (1) BFS 1 remnants; (2) BFS2 remnants; (3-7) remaining ovarian tissue; (8-9) Waist Cutter tubal tissue. (R9) ?rm _ ?Frozen Section FROZEN SECTION DIAGNOSIS A - Right ovary and fallopian tube: ??1. Mucinous neoplasm, favor cystadenoma 03/23/16 16:19 B - Left ovary and fallopian tube: ??1. Small corpus luteum 03/23/16 16:47 Electronically signed by: ??Marino Bethea MD Verified: ??03/23/2016 ?Pathologist This intraoperative consultation should be interpreted as a preliminary diagnosis pending review of the entire specimen and special studies, if any. 03/30/2016 8:44 AM EST [facility] OVARIAN PART / Unknown 03/23/2016 2:56 PM EST 03/23/2016 2:56 PM EST OVARIAN PART / Unknown 03/23/2016 2:56 PM EST 03/23/2016 2:56 PM EST Helene Manriquez MD PATHOLOGY/CYTOLOGY O PANCHO Performing Organization Address [facility] Co de Phone Number [facility] [place] [address] * Non-Oleo Hasher And Renderer Final Report (03/23/2016 2:49 PM EST) Diagnosis Discussion [id number] ?Location: [facility]; [facility]; A The signing pathologist has (i) examined the relevant preparation(s) for the specimen(s) and (ii) rendered or confirmed the diagnosis(es). . ? Non-Oleo Hasher And Renderer Final DIAGNOSIS Negative for Malignancy Electronically signed by: ??Sujata ELIZONDO, Floyd Pandya Verified: ??03/25/2016 ?Cytopathologis t DISCUSSION Pelvic Wash: Clusters of mesothelial cells present. (Cell block is scanty and non-cotributory. ) CLINICAL INFORMATION Specimen Source : ?? Pelvic Wash Pertinent Clinical Data and Significant Therapy: ?? Pelvic mass Clinical Impression : ?? Pelvic mass Pertinent Radiologic Findings ??: ?? (not provided) Gross Description: ?? Received ??fresh, approximately 60 mL total volume of ?? clear, colorless fluid. ?? Total Preparation: Liquid Based Prep 1; Cell Block 1. 03/25/2016 11:22 AM EST [facility] Pelvic Washing 03/23/2016 2: 49 PM EST 03/23/2016 2:49 PM EST Helene Manriquez MD PATHOLOGY/CYTOLOGY Dipika DELEON Performing Organization Address [facility] Co de Phone Number [facility] [place] [address] * Cytopathology Non-Gynecological (03/23/2016 2:49 PM EST) AP Specimen 03/23/2016 2:49 PM EST 03/23/2016 2:49 PM EST Narrative [facility] - 03/23/2016 2:49 PM EST Specimen requisition ordered. ??Separate Pathology report to follow Helene Manriquez MD PATHOLOGY/CYTOLOGY O RDERABLES Performing Organization Address [facility] Co de Phone Number [facility] [place] [address] * Lyme IgG & IgM Antibody (03/23/2016 12:53 PM EST) Lyme Antibody Neg Neg [facility] Blood specimen (specimen) 03/23/2016 12:53 PM EST 03/24/2016 7:11 AM EST Narrative Resulting Agency Comment Spec In Lab Helene Manriquez MD IMMUNOLOGY ORDERABLE S Performing Organization Address [facility] Co de Phone Number [facility] [place] [address] * Hepatic Function Panel (03/23/2016 12:53 PM EST) Protein, Total 6.6 6.1 - 8.0 gm/dL [facility] Albumin 4.5 3.2 - 5.2 gm/dL [facility] Aspartate Aminotransferase 18 0 - 30 unit/L [facility] Alanine Aminotransferase 18 0 - 30 unit/L [facility] Alkaline Phosphatase 51 40 - 104 unit/L [facility] Bilirubin, Total 0.6 0.2 - 1.3 mg/dL [facility] Bilirubin, Direct 0.2 0.0 - 0.3 mg/dL [facility] Blood specimen (specimen) 03/23/2016 12:53 PM EST 03/23/2016 12:58 PM EST Narrative Resulting Agency Comment Spec In Lab Helene Manriquez MD CHEMISTRY ORDERABLES Performing Organization Address [facility]/State/ZIP [place] [address] documented in this encounter Visit Diagnoses Not on filedocumented in this encounter Administered Medications Inactive Administered Medications - up to 3 most recent administrations Medication Order MAR Action Action Date Dose Rate Site BUpivacaine (PF) (MARCAINE) 0.5 % (5 mg/mL) injection ONCE PRN, Starting on Wed03/23/16 at 1659, Until Wed03/23/16 at 2210, Intra-Operative (Intra-Procedure), Routine Given 03/23/2016 4:59 PM EST 17 mLs 19- Surgical Site oxyCODONE (ROXICODONE) immediate release tablet 5 mg 5 mg, Oral, EVERY 3 HOURS PRN, Starting on Wed03/23/16 at 1701, Until Wed03/23/16 at 2210, Pain, May repeat once within 30-60 minutes if pain unrelieved., Routine Given 03/23/2016 6:09 PM EST 5 mg documented in this encounter Active and Recently Administered Medications Times are shown in EST. Scheduled Medication Order 03/21/2016 03/22/2016 03/23/2016 acetaminophen (TYLENOL) tablet 1,000 mg 1,000 mg, Oral, ONCE, 1 dose, On Wed03/23/16 at 1330, Maximum dose of acetaminophen is 4000 mg from all sources in 24 hours., Day of Surgery (Day of Procedure), Routine 1330 (Not Given - Pr ovider: Rose Mary Mckeon RN - Reason: Entered in Error - Comment: Duplicate order) acetaminophen (TYLENOL) tablet 1,000 mg (COMPLETED) 1,000 mg, Oral, ONCE, 1 dose, On Wed03/23/16 at 1330, Administer with SIP of H2O only., Day of Surgery (Day of Procedure), Routine 1343 (Given - Provid er: Rose Mary Mckeon RN) gabapentin (NEURONTIN) capsule 600 mg 600 mg, Oral, ONCE, 1 dose, On Wed03/23/16 at 1330, Day of Surgery (Day of Procedure), Routine 1330 (Not Given - Pr ovider: Rose Mary Mckeon RN - Reason: Entered in Error - Comment: Duplicate order) gabapentin (NEURONTIN) capsule 600 mg (COMPLETED) 600 mg, Oral, ONCE, 1 dose, On Wed03/23/16 at 1330, Administer with SIP of H2O only., Day of Surgery (Day of Procedure), Routine 1343 (Given - Provid er: Rose Mary Mckeon RN) ondansetron (ZOFRAN-ODT) oral disintegrating tablet 8 mg (COMPLETED) 8 mg, Oral, ONCE, 1 dose, On Wed03/23/16 at 1330, Day of Surgery (Day of Procedure), Routine 1343 (Given - Provid er: Rose Mary Mckeon RN) phenazopyridine (PYRIDIUM) tablet 200 mg (COMPLETED) 200 mg, Oral, ONCE, On Wed03/23/16 at 1330, 1 dose, Day of Surgery (Day of Procedure) 1343 (Given - Provid er: Rose Mary Mckeon RN) Continuous Medication Order 03/21/2016 03/22/2016 03/23/2016 lactated ringers infusion 1,000 mL 1,000 mL, at 100 mL/hr, Intravenous, CONTINUOUS, Starting on Wed03/23/16 at 1330, Until Wed03/23/16 at 1958, Day of Surgery (Day of Procedure) 1344 (New Bag - Prov ider: Rose Mary Mckeon RN)1425 (Anesthesia Volume Adjustment - Provider: Marino Bustos CRNA)1524 (Anesthesia Volume Adjustment - Provider: Hui Mathis CRNA)1604 (Anesthesia Volume Adjustment - Provider: Hui Mathis CRNA) PRN Medication Order 03/21/2016 03/22/2016 03/23/2016 BUpivacaine (PF) (MARCAINE) 0.5 % (5 mg/mL) injection (CANCELED) ONCE PRN, Starting on Wed03/23/16 at 1659, Until Wed03/23/16 at 2210, Intra-Operative (Intra-Procedure), Routine 1659 (Given - Provid er: Helene Manriquez MD) fentaNYL (PF) 50 mcg/mL 2mL syringe(Linked Group 1) 25 mcg, Intravenous, EVERY 5 MIN PRN, Pain, for 1-4 pain score, Starting on Wed03/23/16 at 1622, Until Wed03/23/16 at 1958, for 1-4 pain score Hold for respiratory rate less than 10 per minute. Maximum dose: 250 mcg over one hour., PACU Recovery fentaNYL (PF) 50 mcg/mL 2mL syringe(Linked Group 1) 50 mcg, Intravenous, EVERY 5 MIN PRN, Pain, for 5-10 pain score, Starting on Wed03/23/16 at 1622, Until Wed03/23/16 at 1957, for 5-10 pain score Hold for respiratory rate less than 10 per minute. Maximum dose: 250 mcg over one hour., PACU Recovery HYDROmorphone (DILAUDID) syringe 0.2-0.4 mg 0.2-0.4 mg, Intravenous, EVERY 5 MIN PRN, Pain, Starting on Wed03/23/16 at 1622, Until Wed03/23/16 at 1957, For moderate pain (4-6) give: 0.2 mg every 5 minute prn For severe pain (7-10) give: 0.4 mg every 5 minutes prn Maximum dose: 4 mg per hour Hold for respiratory rate less than 10 per minute., PACU Recovery lidocaine (XYLOCAINE) 10 mg/mL (1 %) injection 3 mg 3 mg (0.3 mL), Subcutaneous, ONCE PRN, 1 dose, Starting on Wed03/23/16 at 1304, Until Wed03/23/16 at 1957, for discomfort with PIV insertion, Day of Surgery (Day of Procedure), Routine lidocaine (XYLOCAINE) 10 mg/mL (1 %) injection 3 mg 3 mg (0.3 mL), Subcutaneous, ONCE PRN, 1 dose, Starting on Wed03/23/16 at 1304, Until Wed03/23/16 at 1957, for discomfort with PIV insertion, Day of Surgery (Day of Procedure), Routine naloxone (NARCAN) injection 40 mcg 40 mcg, Intravenous, EVERY 5 MIN PRN, Starting on Wed03/23/16 at 1622, Until Wed03/23/16 at 1957, Opioid Reversal, for respiratory rate less than 6 or unresponsive., May repeat every every 5 minutes to increase respiratory rate. DO NOT exceed 120 mcg total dose. Notify anesthesia immediately if administered., PACU Recovery, Routine ondansetron (ZOFRAN) injection 4 mg 4 mg, Intravenous, EVERY 30 MIN PRN, Starting on Wed03/23/16 at 1622, Until Wed03/23/16 at 1957, Nausea, May repeat 4 mg once in 30 minutes. If multiple antiemetics ordered, use ondansetron first and if ineffective use prochlorperazine second and if ineffective use promethazine, PACU Recovery 1800 (Given - Provid er: Zara Enrique RN) oxyCODONE (ROXICODONE) immediate release tablet 5 mg 5 mg, Oral, EVERY 3 HOURS PRN, Starting on Wed03/23/16 at 1701, Until Wed03/23/16 at 2210, Pain, May repeat once within 30-60 minutes if pain unrelieved., Routine 1808 (Given - Provid er: Zara Enrique RN) promethazine (PHENERGAN) injection 6.25 mg 6.25 mg, Intravenous, EVERY 30 MIN PRN, Nausea, Starting on Wed03/23/16 at 1622, 2 doses, Until Wed03/23/16 at 1958, If multiple antiemetics ordered, use ondansetron first and if ineffective use prochlorperazine second and if ineffective use promethazine, PACU Recovery sodium chloride 0.9 % flush 5-20 mL 5-20 mL, Intravenous, EVERY 1 MIN PRN, Starting on Wed03/23/16 at 1304, Until Wed03/23/16 at 1958, flush, Flush pertains to all indwelling lines. Flush per protocol found in the job aid using the link provided on this medication record., Day of Surgery (Day of Procedure), Routine sodium chloride 0.9 % flush 5-20 mL 5-20 mL, Intravenous, EVERY 1 MIN PRN, Starting on Wed03/23/16 at 1304, Until Wed03/23/16 at 1958, flush, Flush pertains to all indwelling lines. Flush per protocol found in the job aid using the link provided on this medication record., Day of Surgery (Day of Procedure), Routine Linked Groups Order Group 1: fentaNYL (PF) 50 mcg/mL 2mL syringeJump to med 25 mcg, Intravenous, EVERY 5 MIN PRN, Pain, for 1-4 pain score, Starting on Wed03/23/16 at 1622, Until Wed03/23/16 at 1958, for 1-4 pain score Hold for respiratory rate less than 10 per minute. Maximum dose: 250 mcg over one hour., PACU Recovery Or fentaNYL (PF) 50 mcg/mL 2mL syringeJump to med 50 mcg, Intravenous, EVERY 5 MIN PRN, Pain, for 5-10 pain score, Starting on Wed03/23/16 at 1622, Until Wed03/23/16 at 1958, for 5-10 pain score Hold for respiratory rate less than 10 per minute. Maximum dose: 250 mcg over one hour., PACU Recovery documented in this encounter Care Teams Booster Pump Oiler Relationship Specialty Start Date End Date Janee Mitchell, CORNELIA [address] [place] [address] PCP - General Family Medicine 03/12/16 documented as of this encounter
--- OUTSIDE RECORDS SUMMARY | 2024-02-23 13:18 | XMS_ITS | Encounter Summary ---
Author Organization [facility] Address [facility] [place] [address] Care Team Providers Care Voice Instructor Name Role Phone SohaJanee laurent APRN Primary Care Provider Encounter Details Date Type Department Care Team (Late st Contact Info) Description 03/31/2016 Telephone [place] [address] Helene Manriquez MD [facility] [place] [address] Social History Tobacco Use Types Packs/Day Years [...] encounter Miscellaneous Notes * Telephone Encounter - Helene Manriquez MD - 03/31/2016 1:38 PM EST LMOM. will discuss at postop check. DIAGNOSIS A - Right tube and ovary, [...] A - Right Tube and Ovary Cancer documented in this encounter Plan of Treatment Not on file documented as of this encounter Visit Diagnoses Not on filedocumented in this encounter Care Teams Voice Instructor Relationship Specialty Start Date End Date Janee Mitchell, POWER PROJECT MANAGER [address] [place] [address] PCP - General Family Medicine 03/12/16 documented as of this encounter
--- OUTSIDE RECORDS SUMMARY | 2024-02-23 13:18 | XMS_ITS | Encounter Summary ---
Author Organization [facility] Address [facility] [place] [address] Care Team Providers Care Stunt Driver Name Role Phone Stephen Janee LOCKE Primary Care Provider [phone] Reason for Visit * Auth/Cert Specialty Diagnoses [...] Expiration Date Visits Re quested Visits Authorized [id number] 1 1 Encounter Details Date Type Department Care Team (Late st Contact Info) Description 03/23/2016 1:50 PM EST Anesthesia Event [place] [phone] Brayden Werner MD [facility] [place] [address] Alondra Vasquez CRNA [facility] [address] Anesthesia Record Procedure Summary Procedure Name Responsible Anesthesiologist Anesthesia Start Time Anesthesia Stop Time @SALPINGO-OOPHORECTO MY, UNILATERAL OR DAVID (WRVU 12.16) (Abdomen) Brayden Wenrer MD 03/23/16 1350 03/23/16 1703 Events Date Time Event Comment 03/23/2016 1324 1350 AN Verify 1350 Start 1355 An Start Data 1402 An Induction 1403 An Intubation 1407 Anesthesia Ready 1435 Skin Incision 1511 Handoff Intra-procedure anesthesia care was transferred after review of the patient's history, current anesthetic/surgical status and plan, according to the ANES Provider Handoff Checklist. 1649 Extubation/LMA Out 1649 an stop data 1703 Recovery or ICU Handoff Preethi ent care was transferred to the destination unit staff after review of the patient's medical history, current anesthetic/surgical status and plan, according to the Provider Handoff Checklist. 1703 Stop Meds Name Total Midazolam 2 mg fentaNYL 100 mcg IV Lidocaine 40 mg Propofol 160 mg Rocuronium 50 mg PHENYLephrine 80 mcg ePHEDrine 15 mg Ondansetron 8 mg Dexamethasone 8 mg Neostigmine 1 mg Glycopyrrolate 0.1 mg HYDROmorphone 0.4 mg Ketorolac 30 mg lactated ringers infusion 1,000 mL 700 m L * Agents Name O2 Air N2O Sevoflurane (et) * Blood No blood administrations on file. Lines, Drains, and Airways Type Details Placement Removal (RETIRED) Peripheral IV Line - Single Lumen 03/23/16; 1344; cephalic vein (lateral side of arm), right; [id number] catheter system; 20 gauge; Dorie Bustos CRNA; intradermal injection; 03/23/16195703/23/16 1344 by Rose Mary Mckeon RN 03/23/161957 by Zara Enrique, BRIAN ETT Mask Ventilation: Ea sy (1); ETT Type: Cuffed, Oral; ETT Size: 7 mm; Mac Blade: 4; Notes: Asleep, Pre-O2; Attempts: 1; Laryngoscopy Grade: 1; ETT Placement Verified By: Auscultation, Capnometry, Visual; Secured at Teeth: 23 cm; Removal Date: 03/23/16; Removal Time: 164803/23/16 1403 by Marino Bustos CRNA 03/23/16 1649 by Hui Mathis CRNA Incision 03/23/16; 1433; abdo men; laparoscopic puncture; 12/29/21 (LDA cleanup utility RA#[id number]); 1715 (LDA cleanup utility RA#[id number]) 03/23/16 1433 by Cherise Gracia RN 12/29/21 1715 by Tamara Grajeda Urethral Catheter 03/23/16; 1445; Abdominal surgery; Physician order; indwelling single lumen catheter; latex; 14; inserted at this facility (by DR. Herbert); 1; 5; 5; other (see comments) (general); drainage bag to dependent drainage; 03/23/16; 1655 03/23/16 1445 by Cherise Gracia RN 03/23/16 1655 by Cherise Gracia RN documented in this encounter Social History Tobacco Use Types Packs/Day Years [...] on file documented as of this encounter OR Notes * Anesthesia Postprocedure Evaluation - Jac Munoz - 03/23/2016 8:36 PM EST [facility] Department of Anesthesiology Post-procedure Note Patient: Miriam Rawls Procedure Summary Date Anesthesia Start Anesthesia Stop Room / Location 03/23/16 1350 1703 [facility] OR / [facility] MAIN OR Procedure Diagnosis Surgeon Responsible Provider @SALPINGO-OOPHORECTOMY, UNILATERAL OR DAVID (N/A Abdomen) (PELVIC MASS) Helene Manriquez MD Manfred, Christopher S, MD All Anesthesia Providers: Anesthesiologist: Marino Louise MD; Brayden Werner MD [employer]PERVISOR [employer] DEPOSIT: Marino Bustos CRNA; Hui Mathis CRNA Research Technologist: Jac Munoz DO Last (1hr) Vitals: BP Temp Pulse Resp SpO2 Patient Location: PACU/[facility] Level of Consciousness: Awake and Alert Pain Management: Satisfactory Analgesia PONV: None Cardiovascular Status: At Baseline and Hemodynamically Stable Respiratory Status: At Baseline and Room Air Postoperative Fluid Status: Intravascular EUvolemia Possible Anesthetic Complications: NONE apparent at time of evaluation Final Primary Anesthesia Type: General (The anesthetic type performed was the same as planned.) Comments: JAC MUNOZ DO * Anesthesia Preprocedure Evaluation - Jac Munoz - 03/23/2016 11:19 AM EST Pre-Anesthesia Evaluation for: Miriam Rawls a 55 y.o. female. Procedure(s): LAPAROSCOPY, REMOVAL OF ADNEXA @HYSTERECTOMY, TOTAL ABD., W W/O BSO @LYMPHADENECTOMY, LIMITED FOR STAGING, RETROPERITONEAL Patient Active Problem List Diagnosis ??? Pelvic mass in female ??? Abnormal LFTs ??? h/o ASCUS Past Medical History Diagnosis Date ??? h/o ASCUS 10/27/2015 ??? Pelvic mass in female 03/12/2016 No past surgical history on file. Social History Substance Use Topics ??? Smoking status: Former Smoker Packs/day: 0.10 Years: 3.00 Types: Cigarettes Quit date: 03/12/1986 ??? Smokeless tobacco: Never Used ??? Alcohol use Not on file History Drug Use Not on file No Known Allergies Medications: MAR and/or home medications have been reviewed. Physical Exam: There were no vitals filed for this visit. There is no height or weight on file to calculate BMI. Airway Assessment: Mallampati: I TM distance: >3 FB Neck ROM: full Cardiovascular Assessment: Pulmonary Assessment: Dental Assessment: - normal exam Misc Assessment: IV access: Peripheral line Anesthesia Plan: ASA 1 general, with a(n) intravenous induction 55yo female presenting for laparoscopic (possible open) exploration and excision of 13cm pelvic mass. PMHx: -depression (st. Cameron wort, stopped taking 1mo ago) Anesthetic Hx: no prior issue with GA at OSH Cardiopulmonary Hx: no known disease Remote smoking hx No GERD Appropriately NPO Plan: GETA, pre-op tylenol and gabapentin, consented for TAP block should large incision need to bemade The patient was informed of the risks of anesthesia, and consent was obtained. Region - Other Informed Consent: Anesthetic plan and risks discussed with patient. Plan discussed with SUPERVISOR SAF[employer] DEPOSIT and attending. PAT Staff Note documented in this encounter Miscellaneous Notes * Addendum Note - Marino Bustos CRNA - 03/24/2016 3:06 PM EST Addendum created 03/24/16 1506 by Marino Bustos CRNA Anesthesia Intra Meds edited documented in this encounter Plan of Treatment Not on file documented as of this encounter Visit Diagnoses Not on filedocumented in this encounter Administered Medications Inactive Administered Medications - up to 3 most recent administrations Medication Order MAR Action Action Date Dose Rate Site dexamethasone (DECADRON) injection PRN, Starting on Wed03/23/16 at 1414, Until Wed03/23/16 at 1703, Anesthesia Intra-op, Routine Given 03/23/2016 2:14 PM EST 8 mg ePHEDrine 5 mg/mL multi-dose injection PRN, Starting on Wed03/23/16 at 1427, Until Wed03/23/16 at 1703, Anesthesia Intra-op, Routine Given 03/23/2016 3:53 PM EST 5 mg Given 03/23/2016 2:27 PM EST 10 mg fentaNYL 50 mcg/mL multi-dose injection PRN, Starting on Wed03/23/16 at 1352, Until Wed03/23/16 at 1703, Pain, Anesthesia Intra-op, Routine Given 03/23/2016 4:52 PM EST 25 mcg Given 03/23/2016 2:42 PM EST 25 mcg Given 03/23/2016 2:37 PM EST 25 mcg glycopyrrolate (ROBINUL) multi-dose injection PRN, Starting on Wed03/23/16 at 1645, Until Wed03/23/16 at 1703, Anesthesia Intra-op, Routine Given 03/23/2016 4:45 PM EST 0.1 mg HYDROmorphone (DILAUDID) injection PRN, Starting on Wed03/23/16 at 1611, Until Wed03/23/16 at 1703, Pain, Anesthesia Intra-op, Routine Given 03/23/2016 4:11 PM EST 0.4 mg ketorolac (TORADOL) injection PRN, Starting on Wed03/23/16 at 1648, Until Wed03/23/16 at 1703, Pain, Anesthesia Intra-op, Routine Given 03/23/2016 4:48 PM EST 30 mg lidocaine (PF) (XYLOCAINE) 100 mg/5 mL (2 %) injection PRN, Starting on Wed03/23/16 at 1406, Until Wed03/23/16 at 1703, Anesthesia Intra-op, Routine Given 03/23/2016 2:06 PM EST 40 mg midazolam (PF) (VERSED) 1 mg/mL multi-dose injection PRN, Starting on Wed03/23/16 at 1352, Until Wed03/23/16 at 1703, Sleep, Anesthesia Intra-op, Routine Given 03/23/2016 1:52 PM EST 2 mg neostigmine (PROSTIGMINE) multi-dose injection PRN, Starting on Wed03/23/16 at 1645, Until Wed03/23/16 at 1703, Anesthesia Intra-op, Routine Given 03/23/2016 4:45 PM EST 1 mg ondansetron (ZOFRAN) injection PRN, Starting on Wed03/23/16 at 1418, Until Wed03/23/16 at 1703, Nausea, Anesthesia Intra-op, Routine Given 03/23/2016 4:08 PM EST 4 mg Given 03/23/2016 2:18 PM EST 4 mg PHENYLephrine HCl in NS (PF) (CHARLIE-SYNEPHRINE) 0.8 mg/10 mL (80 mcg/mL) multi-dose injection Syrg PRN, Starting on Wed03/23/16 at 1524, Until Wed03/23/16 at 1703, Anesthesia Intra-op, Routine Given 03/23/2016 3:24 PM EST 80 mcg propofol (DIPRIVAN) 10 mg/mL bolus injection (Anesthesia) PRN, Starting on Wed03/23/16 at 1407, Until Wed03/23/16 at 1703, Anesthesia Intra-op Given 03/23/2016 2:07 PM EST 16 0 mg rocuronium (ZEMURON) multi-dose injection PRN, Starting on Wed03/23/16 at 1407, Until Wed03/23/16 at 1703, Anesthesia Intra-op, Routine Given 03/23/2016 3:14 PM EST 10 mg Given 03/23/2016 2:07 PM EST 40 mg documented in this encounter Care Teams Stunt Driver Relationship Specialty Start Date End Date Janee Mitchell, CORNELIA [address] [place] [address] PCP - General Family Medicine 03/12/16 documented as of this encounter
--- OUTSIDE RECORDS SUMMARY | 2024-02-23 13:19 | XMS_ITS | Encounter Summary ---
Author Organization [facility] Address [facility] [place] [address] Care Team Providers Care Optometry Professor Name Role Phone Melani Lal APRN Primary Care Provider [phone] Encounter Details Date Type Department Care Team (Latest Contact Info) Description 02/27/2016 - 02/27/2016 11:59 PM EDT Hospital Encounter Radiology Library [place] [id number] Jin Hirsch MD [facility] GYNEC[place] [address] Pain Discharge Disposition: Home Social History Tobacco Use Types Packs/Day Years Used Date Smoking Tobacco: Former Sex and Gender Information Value Date Recorded Sex Assigned at Not on file Gender Identity Not on file Sexual Orientation Not on file documented as of this encounter Medications at Time of Discharge Medication Sig Dispensed Refills Start Date End Date MAGNESIUM CARBONATE ORAL Take by mouth. MULTIVITAMIN ORAL 11/12/2009 doxycycline (VIBRA-TABS) 100 mg Tablet 10/16/2015 03/12/2016 fluconazole (DIFLUCAN) 150 mg Tablet 10/16/2015 03/12/2016 CALCIUM ORAL 11/12/2009 03/12/2016 FLAXSEED OIL ORAL 11/12/2009 03/12/2016 documented as of this encounter Plan of Treatment Not on file documented as of this encounter Procedures Procedure Name Priority Date/Time Associated Diagnosis Comments FILM LIBRARY STORAGE ONLY ULTRASOUND STUDY Routine 02/27/2016 12:00 AM EDT Pain documented in this encounter Results * Film Library- Storage Only Ultrasound Study (02/27/2016 12:00 AM EDT) Narrative [facility] - 03/05/2016 1:53 PM EDT This exam is for storage only and is auto-finalizing. Jin Hirsch MD IMArlin FILM LIBRARY ORD ERABLES Performing Organization Address City/State/[facility] Co de Phone Number [place], [place] documented in this encounter Visit Diagnoses Diagnosis Pain Generalized pain documented in this encounter Care Teams Optometry Professor Relationship Specialty Start Date End Date Melani Lal APRN PCP - General 04/20/14 03/11/16 documented as of this encounter
--- OUTSIDE RECORDS SUMMARY | 2024-02-23 13:19 | XMS_ITS | Encounter Summary ---
Author Organization [facility] Address [facility] [place] [address] Care Team Providers Care Sonar Technician Name Role Phone Melani Lal APRN Primary Care Provider +1- [phone] Reason for Visit * Reason Comments Referral * Consultation (Urgent) - Closed Specialty Diagnoses / Procedures Referred By Contac t Referred To Contact Infectious Diseases Diagnoses Acute lyme disease, elvated LFTS Melani Lal APRN [address] [place] [address] [facility] Infectious Dis [address] [place] [address] Referral ID Status Reason Start Date Expiration Date V isits Requested Visits Authorized [id number] Closed Consult, Test & Treat Connection Center 10/17/2015 10/16/2016 1 1 Encounter Details Date Type Department Care Team (Late st Contact Info) Description 10/18/2015 1:00 PM EDT Office Visit [place] [address] Kurt Henning MD [facility] [place] [address] Generalized weakness; Fever with chills Social History Tobacco Use Types Packs/Day Years Used Date Smoking Tobacco: Former Sex and Gender Information Value Date Recorded Sex Assigned at Not on file Gender Identity Not on file Sexual Orientation Not on file documented as of this encounter Last Filed Vital Signs Vital Sign Reading Time Taken Comments Blood Pressure 127/79 10/18/2015 1:18 PM EDT Pulse 88 10/18/2015 1:18 PM EDT Temperature 36.6 ??C (97.8 ??F) 10/18/2015 1:18 PM ED T Respiratory Rate 16 10/18/2015 1:18 PM EDT Oxygen Saturation - - Inhaled Oxygen Concentration - - Weight 63.5 kg (140 lb) 10/18/2015 1:18 PM EDT Height - - Body Mass Index - - documented in this encounter Progress Notes * Kurt Henning MD - 10/27/2015 5:13 PM EDT Infectious Diseases Outpatient Consultation We are asked by Ms. Lal to see this 55-year-old woman because of fever, fatigue, headache, andgeneralized arthralgias and myalgias. I obtained history from the patient, a good historian, and from office notes provided by Ms. Lal. Ms. Rawls was in her usual state of health until about two weeks ago, when she developed low back pain, chills, fever as high as 103, and fatigue. She went to see her primary care provider onOctober 13, and when a Lyme screen returned as positive, she was started on doxycycline on October 15. Ms. Rawls's history is also notable for a pruritic rash that developed a few weeks before the current illness, associated with lip swelling; this resolved with Benadryl. Ms. Rawls does engage in some outdoor activities, such as gardening. She is not aware of having had a tick bite nor a rash during this acute illness and there is no history of travel. She drinks a moderate amount of alcohol. 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 Of note is that she recently underwent a very stressful divorce and she describes herself as being under a great deal of stress in general. Ms. Rawls does not take any medications regularly, but she has been taking up to 3000 mg ofacetaminophen a day for the past few weeks. Since starting doxycycline, the patient says that she feels better, with no fever over the past 24 hours. Patient Active Problem List Diagnosis Code ??? Abnormal LFTs R79.89 ??? h/o ASCUS R87.610 Outpatient Encounter Prescriptions as of 10/18/2015 Medication Sig Dispense Refill ??? doxycycline (VIBRA-TABS) 100 mg Tablet ??? fluconazole (DIFLUCAN) 150 mg Tablet ??? MAGNESIUM CARBONATE ORAL Take by mouth. ??? [DISCONTINUED] doxycycline (VIBRAMYCIN) 100 mg Capsule Take 100 mg by mouth 2 times daily. ??? MULTIVITAMIN ORAL ??? CALCIUM ORAL ??? FLAXSEED OIL ORAL No facility-administered encounter medications on file as of 10/18/2015. No Known Allergies Vitals: 10/18/15 1318 BP: 127/79 Pulse: 88 Resp: 16 Temp: 36.6 ??C (97.8 ??F) Ms. Rawls looked well. Skin notable for fading, macular lesions, mainly on extremities No cervical adenopathy. Chest clear No heart murmur Abdomen benign, without right upper quadrant tenderness or splenomegaly. No objective joint abnormalities; no muscle tenderness. Normal neurologic exam. Laboratory WBC 9.6, hemoglobin 12.8, platelets 404,000 ESR 63, HSCRP 77 mg/L Electrolytes normal, creatinine 0.74, total bilirubin 0.59, AST 139, ALT 234, alkaline phosphatase 800 Lyme antibody screen positive; one IgG band, three IgM bands HIV, hepatitis B surface antigen, hepatitis B surface antibody, and hepatitis C antibody negative Blood culture negative Impression Ms. Rawls presents with a several-week illness characterized by fever, extreme fatigue, andnonspecific arthralgias and myalgias. She is not aware of having had a tick bite nor a rash that would be characteristic of primary erythema migrans, but it seems possible that she had secondary EM lesions (although not typical of these). Of note are the positive Lyme test -- IgM only, suggesting recent infection (but also somewhat nonspecific) -- and the strikingly abnormal LFTs. The LFT abnormalities suggest the possibility of co- infection with Anaplasma, but I am also concerned about the possibility of toxicity from high doses of acetaminophen plus alcohol use. The patient is being treated properly with doxycycline, which she should take for three weeks. I have asked her not to take any more Tylenol and to refrain from alcohol use until resolution of her acute illness and normalization of her LFTs. It would be appropriate to repeat the LFTs in a week or so after she has abstained from alcohol and acetaminophen and received a week of doxycycline. I will call Ms. Rawls in a week or so to see how she is doing and to answer any questions she may have. I spent a total of 60 minutes of [id number] time with the patient, 40 minutes of which were spentin counseling about possible etiologies for her symptoms and recommendations for management. documented in this encounter Plan of Treatment Not on file documented as of this encounter Visit Diagnoses Diagnosis Generalized weakness Other malaise and fatigue Fever with chills Fever, unspecified documented in this encounter Care Teams Sonar Technician Relationship Specialty Start Date End Date Melani Lal APRN PCP - General 04/20/14 03/11/16 documented as of this encounter
--- OUTSIDE RECORDS SUMMARY | 2024-02-23 13:19 | XMS_ITS | Encounter Summary ---
Author Organization [facility] [place] [address] Care Team Providers Care Incising Machine Operator Name Role Phone Janee Mitchell APRN Primary Care Provider Encounter Details Date Type Department Care Team (Latest Contact Info) Description 03/12/2016 12:00 PM EST [place] [id number] Pelvic mass in female Social History Tobacco Use Types Packs/Day Years Used Date Smoking Tobacco: Former Cigarettes 0.1 3 1 05/12/1982 - 03/12/1986 Smokeless Tobacco: Never Sex and Gender Information Value Date Recorded Sex Assigned at Not on file Gender Identity Not on file Sexual Orientation Not on file documented as of this encounter Plan of Treatment Not on file documented as of this encounter Procedures Procedure Name Priority Date/Time Associated Diagnosis Comments HEMOGRAM Routine 03/12/2016 11:49 AM EST Pelvic mass in female DIFFERENTIAL, AUTOMATED Routine 03/12/2016 11:49 AM EST Pelvic mass in female TYPE AND SCREEN, SDP (FUTURE SURGERY, [facility] SAME [place]GRAM ONLY) Routine 03/12/2016 11:49 AM EST Pelvic mass in female CREATININE Routine 03/12/2016 11:49 AM EST Pelvic mass in female ABO/RH TYPING Routine 03/12/2016 11:49 AM EST Pelvic mass in female CBC (WITH DIFF) Routine 03/12/2016 11:49 AM EST Pelvic mass in female ANTIBODY SCREEN Routine 03/12/2016 11:49 AM EST Pelvic mass in female BUN Routine 03/12/2016 11:49 AM EST Pelvic mass in female ELECTROLYTES PANEL Routine 03/12/2016 11 :49 AM EST Pelvic mass in female documented in this encounter Results * Antibody screen (03/12/2016 11:49 AM EST) Ab Screen Interp Negative [facility] Expires at [id number] on: 03/26/2016 [facility] Blood specimen (specimen) 03/12/2016 11:49 AM EST 03/12/2016 11:54 AM EST Narrative Resulting Agency Comment Spec In Lab Helene Manriquez MD BLOOD BANK LAB ORDER GULSHAN [facility] [place] [place] [address] * ABO/Rh Typing (03/12/2016 11:49 AM EST) ABORH Type A Pos [facility] Blood specimen (specimen) 03/12/2016 11:49 AM EST 03/12/2016 11:54 AM EST Narrative Resulting Agency Comment Spec In Lab Helene Manriquez MD BLOOD BANK LAB ORDER GULSHAN [facility] [place] [place] [address] * Differential, Automated (03/12/2016 11:49 AM EST) Neutrophil % 72.6 % [facility] Neutrophil Absolute 4.56 1.70 - 6.10 x10(3)/mcL [facility] Lymph % 18.2 % [facility] Lymphocytes Abs 1.1 0.9 - 3.2 x10(3)/[facility] Monocyte % 6.7 % [facility] Monocyte Abs 0.4 0.3 - 0.9 x10(3)/[facility] Eos % 1.6 % [facility] Eosinophils Abs 0.1 0.0 - 0.4 x10(3)/[facility] Basophil % 0.6 % [facility] Baso Absolute 0.0 0.0 - 0.1 x10(3)/[facility] Immature Gran % 0.30 % [facility] Comment: Immature granulocytes(IG's)percentage and absolute count will include metamyelocytes, myelocytes, and promyelocytes. Blood smears from CBCs yielding IG's will be scanned manually for concordance. If this scan disagrees with the automated IG or if promyelocytes are noted, a manual differential will be performed. Immature Gran Absolute 0.02 0.00 - 0.04 x10(3)/[facility] Blood specimen (specimen) 03/12/2016 11:49 AM EST 03/12/2016 11:56 AM EST Narrative Resulting Agency Comment Spec In Lab Helene Manriquez MD HEMATOLOGY ORDERABLE S Performing Organization Address City/State/[facility] Co de Phone Number [facility] [place] [place] [address] * Hemogram (03/12/2016 11:49 AM EST) White Blood Cell 6.3 4.0 - 9.5 x10(3)/[facility] Red Blood Cell 4.41 4.00 - 5.21 x10(6)/[facility] Hemoglobin 14.0 11.7 - 15.5 gm/dL [facility] Hematocrit 41.3 35.7 - 45.8 % [facility] Mean Cell Volume 93.7 82.6 - 94.4 fL [facility] Mean Cell Hemoglobin 31.7 27.1 - 32.0 pg [facility] Mean Cell Hemoglobin Concentration 33.9 31.7 - 35.0 gm/dL [facility] Platelet 238 145 - 357 x10(3)/[facility] RDW Standard Deviation 42.8 37.0 - 46.0 fL [facility] RDW coefficient of variation 12.3 11.5 - 14.1 % [facility] Mean Platelet Volume 9.2 7.6 - 12.9 fL [facility] NRBC% auto 0.0 % [facility] NRBC Absolute 0.000 0.000 - 0.000 x10(3)/[facility] Blood specimen (specimen) 03/12/2016 11:49 AM EST 03/12/2016 11:56 AM EST Narrative Resulting Agency Comment Spec In Lab Helene Manriquez MD HEMATOLOGY ORDERABLE S [facility] [place] [id number] * Creatinine (03/12/2016 11:49 AM EST) Creatinine 0.80 0.70 - 1.20 mg/dL [facility] Comment: Please note that the pediatric reference intervals supplied above were not validated at [facility]. Results from pediatric patients should be interpreted in conjunction to the patient's age, height and muscle mass. Est Glomerular Filtration Rate >60 >=60 [facility] Comment: This estimated GFR (eGFR) value was calculated using the MDRD equation which has been validated on patients between the ages of 18 and 70. The MDRD should not be used to assess kidney function in patients < 18 years of age or in patients with extremes of body mass, or in patients with acute kidney failure. This value should be multiplied by 1.2 for patients. For further information please copy and paste the following links into your internet browser. http://[email or web address]/[email or web address] [email or web address]/[email or web address] Blood specimen (specimen) 03/12/2016 11:49 AM EST 03/12/2016 11:56 AM EST Narrative Resulting Agency Comment Spec In Lab Helene Manriquez MD CHEMISTRY ORDERABLES Performing Organization Address [facility] Co de Phone Number [facility] [place] [address] * (ABNORMAL) BUN (03/12/2016 11:49 AM EST) Blood Urea Nitrogen 21(H) 8 - 18 mg/dL [facility] Blood specimen (specimen) 03/12/2016 11:49 AM EST 03/12/2016 11:56 AM EST Narrative Resulting Agency Comment Spec In Lab Helene Manriquez MD CHEMISTRY ORDERABLES Performing Organization Address [facility] Phone Number [facility] [place] [address] * Electrolytes panel (03/12/2016 11:49 AM EST) Sodium 142 135 - 145 mmol/L [facility] Potassium 4.5 3.5 - 5.0 mmol/L [facility] Comment: Please note: ??Patients with WBC >100,000 may have falsely elevated Potassium levels. ??For accurate Potassium quantification in these patients send serum separator tube (gold top) for subsequent determinations. ??Contact the Clinical Chemistry Laboratory if there are any questions. Chloride 103 98 - 107 mmol/L [facility] Carbon Dioxide 26 22 - 31 mmol/L [facility] Anion Gap 13 5 - 15 mmol/L [facility] Blood specimen (specimen) 03/12/2016 11:49 AM EST 03/12/2016 11:56 AM EST Narrative Resulting Agency Comment Spec In Lab Helene Manriquez MD CHEMISTRY ORDERABLES Performing Organization Address [facility] Co de Phone Number [facility] [place] [place] [address] documented in this encounter Visit Diagnoses Diagnosis Pelvic mass in female Abdominal or pelvic swelling, mass or lump, unspecified site documented in this encounter Care Teams Incising Machine Operator Relationship Specialty Start Date End Date Janee Mitchell, CORNELIA [address] [place] [address] PCP - General Family Medicine 03/12/16 documented as of this encounter
--- OUTSIDE RECORDS SUMMARY | 2024-02-23 13:19 | XMS_ITS | Encounter Summary ---
[place] [address] Care Team Providers Care Soft Metals Engraver Hand Name Role Phone Melani Lal APRN Primary Care Provider +1- [phone] Encounter Details Date Type Department Care Team (Latest Contact Info) Description 04/20/2014 12:51 PM EST - 04/20/2014 11:59 PM EST Hospital En[place] [id number] CLINIC, Melani Clarke APRN [address] [place] [phone] Other (abnormal) findings on radiological examination of breast Discharge Disposition: Home Social History Tobacco Use Types Packs/Day Years Used Date Smoking Tobacco: Never Assessed Sex and Gender Information Value Date Recorded Sex Assigned at Not on file Gender Identity Not on file Sexual Orientation Not on file documented as of this encounter Medications at Time of Discharge Medication Sig Dispensed Refills Start Date End Date MULTIVITAMIN ORAL 11/12/2009 CALCIUM ORAL 11/12/2009 03/12/2016 FLAXSEED OIL ORAL 11/12/2009 03/12/2016 documented as of this encounter Plan of Treatment Not on file documented as of this encounter Procedures Procedure Name Priority Date/Time Associated Diagnosis Comments MAMMO DIRECT DIGITAL UNILATERAL Routine 04/20/2014 1:30 PM EST Other (abnormal) findings on radiological examination of breast documented in this encounter Results * Mammo direct digital unilateral (04/20/2014 1:30 PM EST) Anatomical Region Laterality Modality Breast N/A Mammography 04/20/2014 1:30 PM EST Impressions 04/23/2014 5:28 PM EST IMPRESSION: (BIRADS Category 2) BENIGN FINDING of a 3mm cluster of milk of calcium laterally at 0300, 3.5cm to the nipple. The patient may return to routine screening mammography. Above findings and recommendation discussed with the patient by Dr. Watson at the time of this evaluation. Narrative 04/23/2014 5:28 PM EST EXAMINATION: LEFT UNILATERAL DIAGNOSTIC MAMMOGRAM ON 04/20/14: CLINICAL HISTORY: This is a callback from interpretation of outside bilateral mammogram performed on 03/08/14 and 03/23/14 from [facility] dated 03/27/14 for a 3mm group of microcalcifications in the lateral breast at 0300, 3cm from the nipple. TECHNIQUE: LML, LMCC and LMML views obtained with direct digital capture. FINDINGS: True lateral and spot mag true lateral and CC views obtained today demonstrate that the small grouping of calcifications have changed somewhat in distribution and are more amorphous appearing on the mag CC view and layer on the true lateral views consistent with milk of calcium. These are benign. Procedure Note Anita Watson MD - 04/23/2014 EXAMINATION: LEFT UNILATERAL DIAGNOSTIC MAMMOGRAM ON 04/20/14: CLINICAL HISTORY: This is a callback from interpretation of outsidebilateral mammogram performed on 03/08/14 and 03/23/14 from [facility] dated 03/27/14 for a3mm group of microcalcifications in the lateral breast at 0300, 3cm from thenipple. TECHNIQUE: LML, LMCC and LMML views obtained with direct digitalcapture. FINDINGS: True lateral and spot mag true lateral and CC views obtainedtoday demonstrate that the small grouping of calcifications have changedsomewhat in distribution and are more amorphous appearing on the mag CC view and layeron the true lateral views consistent with milk of calcium. These are benign. IMPRESSION IMPRESSION: (BIRADS Category 2) BENIGN FINDING of a 3mm cluster of milk of calciumlaterally at 0300, 3.5cm to the nipple. The patient may return to routinescreening mammography. Above findings and recommendation discussed with the patient by Dr. Zhou the time of this evaluation. Mame Giordano MD IMG MAMMO ORD ERABLES documented in this encounter Visit Diagnoses Diagnosis Other (abnormal) findings on radiological examination of breast documented in this encounter Care Teams Soft Metals Engraver Hand Relationship Specialty Start Date End Date Melani Lla APRN PCP - General 04/20/14 03/11/16 documented as of this encounter
--- OUTSIDE RECORDS SUMMARY | 2024-02-23 13:19 | XMS_ITS | Encounter Summary ---
Author Organization [facility] Address [facility] [place] [address] Care Team Providers Care Farm Machinery Engine Mechanic Name Role Phone Melani Lal APRN Primary Care Provider +1- [phone] Encounter Details Date Type Department Care Team (Latest Contact Info) Description 03/02/2016 - 03/02/2016 11:59 PM EDT Hospital Encounter Radiology Library at [facility] [place] [phone] [facility] [place] [address] Pain Discharge Disposition: Home Social History Tobacco [...] Associated Diagnosis Comments FILM LIBRARY STORAGE ONLY CT ABDOMEN AND PELVIS Routine 03/02/2016 12:00 AM EDT Pain documented in this encounter Results * Film Library- Storage Only CT Abdomen & Pelvis (03/02/2016 12:00 AM EDT) Narrative [facility] - 03/05/2016 1:56 PM EDT This exam is for storage only and is auto-finalizing. Jin Hirsch MD IMG FILM LIBRARY ORD ERABLES Performing Organization Address City/State/[facility] Co de Phone Number [place], [place] documented in this encounter Visit Diagnoses Diagnosis Pain Generalized pain documented in this encounter Care Teams Farm Machinery Engine Mechanic Relationship Specialty Start Date End Date Melani Lal APRN PCP - General 04/20/14 03/11/16 documented as of this encounter
--- OUTSIDE RECORDS SUMMARY | 2024-02-23 13:19 | XMS_ITS | Encounter Summary ---
Author Organization [facility] Address [facility] [place] [address] Care Team Providers Care Admissions Counselor Name Role Phone Melani Lal APRN Primary Care Provider +1- [phone] Encounter Details Date Type Department Care Team (Late st Contact Info) Description 10/22/2015 External Results [place] [address] Kurt Henning MD [facility] [place] [address] Social History Tobacco Use Types Packs/Day Years Used Date Smoking Tobacco: Former Sex and Gender Information Value Date Recorded Sex Assigned at Not on file Gender Identity Not on file Sexual Orientation Not on file documented as of this encounter Plan of Treatment Not on file documented as of this encounter Procedures Procedure Name Priority Date/Time Associated Diagnosis Comments EXTERNAL LAB INFECTIOUS DISEASE RESULTS PANEL Routine 10/17/2015 documented in this encounter Results * (ABNORMAL) Infectious Disease External Results (10/17/2015) HIV 1/2 Ab neg(External Lab) Hepatitis B Surface Antibody neg Hepatitis B Core Antibody neg Hepatitis B Surface Antigen Negative Hepatitis C Antibody neg 10/17/2015 Historical Provider POINT OF CARE JOSE T ORDERABLES documented in this encounter Visit Diagnoses Not on filedocumented in this encounter Care Teams Admissions Counselor Relationship Specialty Start Date End Date Melani Lal APRN PCP - General 04/20/14 03/11/16 documented as of this encounter
--- OUTSIDE RECORDS SUMMARY | 2024-02-23 13:19 | XMS_ITS | Encounter Summary ---
Author Organization Count Includes [facility] Address [facility] [place] [address] Care Team Providers Care Novelty Chain Maker Name Role Phone Janee Mitchell APRN Primary Care Provider Reason for Visit * Reason Comments Establish Care pelvic mass Encounter Details Date Type Department Care Team (Late st Contact Info) Description 03/12/2016 10:00 AM EST Office Visit [place] [id number] Wenceslao Knight MD [facility] [place] [address] Pelvic mass in female (Primary Dx) Social History Tobacco Use Types Packs/Day Years Used Date Smoking Tobacco: Former Cigarettes 0.1 3 1 05/12/1982 - 03/12/1986 Smokeless Tobacco: Never Sex and Gender Information Value Date Recorded Sex Assigned at Not on file Gender Identity Not on file Sexual Orientation Not on file documented as of this encounter Last Filed Vital Signs Vital Sign Reading Time Taken Comments Blood Pressure 141/70 03/12/2016 9:59 AM EST Pulse 66 03/12/2016 9:59 AM EST Temperature 36.3 ??C (97.3 ??F) 03/12/2016 9:59 AM ES T Respiratory Rate 18 03/12/2016 9:59 AM EST Oxygen Saturation 100% 03/12/2016 9:59 AM EST Inhaled Oxygen Concentration - - Weight 66 kg (145 lb 8.1 oz) 03/12/2016 9:59 AM EST Height 170.6 cm (5' 7.17) 03/12/2016 9:59 AM ES T Body Mass Index 22.68 03/12/2016 9:59 AM EST documented in this encounter Progress Notes * Wenceslao Knight MD - 03/12/2016 10:00 AM EST Images from the original note were not included. Division of Gynecologic Oncology Tiffanie Suárez MD [facility] Wenceslao Knight MD [facility] [place] [address] MD Heather Dunham, [facility] New Outpatient Visit: Reason for visit: Miriam Rawls is being seen in the clinic today at the request of [place] [address] for the evaluation of a pelvic mass. I have reviewed the available records, interviewed and examined the patient. History of Present Illness: Miriam Rawls is a 55 y.o. female referred for evaluation of a pelvic mass. According to the records, the patient was referred to Gianna Castañeda for concerns of a pelvic mass that she first noticed in her abdomen around October. She was also having irregular menses around this time and had a pelvic US done which revealed a large, septated pelvic mass. She then had a CT done which confirmed the mass. The CT scan dated 03/02/2016 reveals: Unremarkable lung bases, normal solid organs, a 13 cm septated pelvic mass with subtle thickening of the septations. There are scattered nonspecific mildly prominent para-aortic and pericaval nodes without gross red peritoneal adenopathy. The mass is thought to arise from the right ovary. There is no mention of ascites. Ultrasound dated 02/27/2016 reveals an 11 x 12 x 12 cm multicystic lesion in the pelvis predominantly on the right. There does appear to be a thick walled septation. There is internal debris. No blood flow is seen. The ovaries are not separately identified. The uterus is 10.4 x 7.1 x 6.7 cm. The stripe is 0.5 cm. There is no pelvic fluid or hydronephrosis noted. CA 125 is 11. 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 She has not had any changes to her bowel or bladder function and no wieght changes. The mass is not painful. She notes menstrual irregularity but notes that she has never had regularperiods and so this was not something that bothered her. She notes that she had a period in October and January. She denies hot flashes/night sweats. Review of Systems: Review of Systems Constitutional: Positive for fever (with Lymes but now better). Negative for activity change, appetite change, fatigue and unexpected weight change. Eyes: Negative. Respiratory: Negative. Negative for cough, chest tightness and shortness of breath. Cardiovascular: Negative. Negative for chest pain and leg swelling. Has some occasional leg swelling depending on EtOH and salt intake. Gastrointestinal: Negative for abdominal distention, abdominal pain, anal bleeding, blood in stool,constipation, diarrhea, nausea and vomiting. Endocrine: Negative. Genitourinary: Positive for menstrual problem. Negative for hematuria and pelvic pain. Musculoskeletal: Positive for back pain (lower back, aging). Negative for arthralgias. Skin: Negative. Allergic/Immunologic: Negative. Neurological: Positive for headaches (with Lyme but now better). Hematological: Negative. Psychiatric/Behavioral: Positive for dysphoric mood (sees a therapist and takes [place]'s wort). The patient is nervous/anxious. Medical History: Past Medical History Diagnosis Date ??? h/o ASCUS 10/27/2015 ??? Pelvic mass in female 03/12/2016 Lyme disease from a tick bite in October- she is not sure if this is going to be confirmed with a repeat blood test. She was treated with doxycycline for 1 month. She was having headache, fevers and hives. 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 Eating disorder; Bulimia, now in remission. Surgical History: Vein ablation Medications: Current Outpatient Prescriptions Medication Sig Dispense Refill ??? MILK THISTLE ORAL Take by mouth as needed. ??? AA COMB.NO3/B/MV-AO4/MN/MIN AA (B [id number] COMB3-AO CB4 ORAL) Take by mouth as needed. ??? JANIA'S WORT ORAL Take by mouth as needed. ??? MAGNESIUM CARBONATE ORAL Take by mouth. ??? MULTIVITAMIN ORAL No current facility-administered medications for this visit. Allergies: No Known Allergies Obstetric History: . Gynecologic History/Health Maintenance: Menarche at age 16. Premenopausal. Used OCPs for ~8 years. Has had regular Pap smear screening and they have been normal recently. Mammograms are up to date. Last year had an abnormal and it was calcifications on repeat and no biposy done. Last colonoscopy = normal. Family History: denies breast, ovarian, colon or uterine cancer. Social History: reports that she quit smoking about 30 years ago. Her smoking use included Cigarettes. She has a 0.30 pack-year smoking history. She has never used smokeless tobacco. Former smoker, ~10 pack year history, in college. She lives with her 14 yo son and her 18 yo daughter is in college. 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 She drinks 3-4 drinks /day. She notes her drinking is a thing but she is able to stop if she wants to. She denies drug use. Physical Exam: Vitals: 03/12/16 0959 BP: 141/70 Pulse: 66 Resp: 18 Temp: 36.3 ??C (97.3 ??F) SpO2: 100% Weight: 66 kg (145 lb 8.1 oz) Height: 170.6 cm (5' 7.16) Body mass index is 22.68 kg/(m^2). Body surface area is 1.77 meters squared. Physical Exam Constitutional: She appears well-developed and well-nourished. No distress. She is here today with her friend. HENT: Head: Normocephalic and atraumatic. Eyes: Right eye exhibits no discharge. Left eye exhibits no discharge. No scleral icterus. Neck: Neck supple. Cardiovascular: Normal rate, regular rhythm and normal heart sounds. Exam reveals no gallop and no friction rub. No murmur heard. Pulmonary/Chest: Effort normal and breath sounds normal. No respiratory distress. She has no wheezes. Abdominal: Soft. She exhibits no distension and no mass. There is no tenderness. There is no rebound. Genitourinary: Genitourinary Comments: Pelvic Exam: Normal external female genitalia with a normal pubic hair distribution. The [place]th[place]'s and [place]'s glands are unremarkable. The urethra is without masses. The urethral meatus is without prolapse. The vagina is pink and rugated. There are no vaginal lesions. The cervix appears normal. Bimanual exam reveals a large pelvic mass which feels cystic, mobile and smooth walled and is more on the right side rising to midway between the pubic symphysis and the umbilicus. It is mobile and nontender. The uterus is deviated to the left and pushed anteriorly. Musculoskeletal: She exhibits no edema or tenderness. Lymphadenopathy: She has no cervical adenopathy. Right: No supraclavicular adenopathy present. Left: No supraclavicular adenopathy present. Neurological: She is alert. Coordination normal. Skin: Skin is warm and dry. No rash noted. No erythema. No pallor. Psychiatric: She has a normal mood and affect. Her behavior is normal. GOG Performance Status: 0 Pertinent Radiographic/Diagnostic Results: Impression/Plan: Miriam Rawls is a 55 y.o. female seen for evaluation of a symptomatic large, cystic pelvicmass. Her physical exam and review of imaging confirms a multiseptated mass that fills the pelvis. Upon review of these findings with Miriam Rawls and her friend, I explained that this finding warrants removal given the symptomatic and complex nature of the mass. I further explained that adefinitive diagnosis can only be made at the time of surgery and that this likely represents a benign or borderline process or much less likely, a malignancy. Given these findings, the decision was made to proceed with surgical exploration. Specifically, a laparoscopic removal of the mass with bilateral salpingectomy and possible staging/possible open surgery. During the course of obtaining informed consent, I explained that the goal of surgery is twofold. First, it would allow us to remove the mass and obtain a frozen section for diagnosis and second it would allow for surgical staging if in fact this is a cancer. The risks of bleeding, infection, damage to surrounding organs, including but not limited to, the bowel, bladder, ureters and blood vessels, and DVT/PE were also reviewed with the patient. At the conclusion of our visit all of her questions were answered and she verbalized understanding of the nature of her condition and the plan of care that was outlined. Surgical exploration with pelvic mass excision, likely tube and ovary. Possible staging. No bowel prep needed. Advance Directives: Lastly, Miriam De Leon LinnetteSpencerBeatriz does not have any advance directives on file. The purpose of advance directives were reviewed with her and her family and she was provided with the state-specific booklet to complete these. I have asked that she bring a completed copy to her next visit so that it may be scanned into our system. Thank you for referring this dez patient to [facility] for her cancer care. I will keep you apprised of her progress. WENCESLAO KNIGHT MD * Tiffanie Cobos RN - 03/12/2016 10:00 AM EST Met with Miriam Curly and her friend after Dr. Knight had explained plan of care to them todiscuss pre-operative instructions and post operative expectations. Miriam stated understanding thatsomeone from the hospital will call her on the day before surgery (Wednesday before the Wednesday surgery) to let her know the time of the surgery and what time she will need to be at the pre-surgical suite. Miriam was instructed on the limited clear liquid diet to start at midnight on the morning surgeryuntil 2 hours prior to surgery, and then she is not allowed to have anything to eat or drink. She understands it is expected that she will be able to go home the same day as the surgery. Explained pre and post op expectations that included, IVs, diet restriction and advancement, frequency of vital signs and nursing assessments, advancement of activity postoperatively and goals that need to be metprior to discharge to home. Miriam stated understanding. Miriam was given the Gynecology Pre-Operative Instruction handout with the telephone number to call if any questions/concerns arise prior to her scheduled surgery date. documented in this encounter Miscellaneous Notes * Advance Care Plan Note - Tiffanie Cobos RN - 03/12/2016 10:00 AM EST Miriam Rawls does not have any advance directives on file. The purpose of advance directives were reviewed with her and she was provided with the state-specific booklet to complete these. I have asked that she bring a copy of her completed advance directives to her next visit so that it may be scanned into our electronic medical record. documented in this encounter Plan of Treatment Not on file documented as of this encounter Results * Lyme IgG & IgM Antibody (03/23/2016 12:53 PM EST) Lyme Antibody Neg Neg [facility] Blood specimen (specimen) 03/23/2016 12:53 PM EST 03/24/2016 7:11 AM EST Narrative Resulting Agency Comment Spec In Lab Wenceslao Knight MD IMMUNOLOGY ORDERABLE S Performing Organization Address City/State/[facility] Co de Phone Number [facility] [place] [address] * Hepatic Function Panel (03/23/2016 12:53 PM EST) Protein, Total 6.6 6.1 - 8.0 gm/dL [facility] Albumin 4.5 3.2 - 5.2 gm/dL [facility] Aspartate Aminotransferase 18 0 - 30 unit/L [facility] Alanine Aminotransferase 18 0 - 30 unit/L [facility] Alkaline Phosphatase 51 40 - 104 unit/L [facility] Bilirubin, Total 0.6 0.2 - 1.3 mg/dL [facility] Bilirubin, Direct 0.2 0.0 - 0.3 mg/dL [facility] Blood specimen (specimen) 03/23/2016 12:53 PM EST 03/23/2016 12:58 PM EST Narrative Resulting Agency Comment Spec In Lab Wenceslao Knight MD CHEMISTRY ORDERABLES Performing Organization Address [facility] de Phone Number [facility] [place] [address] * Creatinine (03/12/2016 11:49 AM EST) Creatinine 0.80 0.70 - 1.20 mg/dL [facility] Comment: Please note that the pediatric reference intervals supplied above were not validated at [facility]. Results from pediatric patients should be interpreted in conjunction to the patient's age, height and muscle mass. Est Glomerular Filtration Rate >60 >=60 [facility] Comment: This estimated GFR (eGFR) value [...] the following links into your internet browser. http://[employer]/DHnkdep http://[employer]/DHMCnkf Blood specimen (specimen) 03/12/2016 11:49 AM EST 03/12/2016 11:56 AM EST Narrative Resulting Agency Comment Spec In Lab Wenceslao Knight MD CHEMISTRY ORDERABLES Performing Organization Address [facility] de Phone Number [facility] [place] [address] * (ABNORMAL) BUN (03/12/2016 11:49 AM EST) Blood Urea Nitrogen 21(H) 8 - 18 mg/dL [facility] Blood specimen (specimen) 03/12/2016 11:49 AM EST 03/12/2016 11:56 AM EST Narrative Resulting Agency Comment Spec In Lab Wenceslao Knight MD CHEMISTRY ORDERABLES Performing Organization Address City/[facility]/ZIP Co de Phone Number [facility] [place] [address] * Electrolytes panel (03/12/2016 11:49 AM EST) Sodium 142 135 - 145 mmol/L [facility] Potassium 4.5 3.5 - 5.0 mmol/L [facility] Comment: Please note: ??Patients with WBC >100,000 may have falsely elevated Potassium levels. ??For accurate Potassium quantification in these patients send serum separator tube (gold top) for subsequent determinations. ??Contact the Clinical Chemistry Laboratory if there are any questions. Chloride 103 98 - 107 mmol/L [facility] Carbon Dioxide 26 22 - 31 mmol/L [facility] Anion Gap 13 5 - 15 mmol/L [facility] Blood specimen (specimen) 03/12/2016 11:49 AM EST 03/12/2016 11:56 AM EST Narrative Resulting Agency Comment Spec In Lab Wenceslao Knight MD CHEMISTRY ORDERABLES Performing Organization Address [facility] Co de Phone Number [facility] [place] [address] documented in this encounter Visit Diagnoses Diagnosis Pelvic mass in female- Primary Abdominal or pelvic swelling, mass or lump, unspecified site documented in this encounter Care Teams Novelty Chain Maker Relationship Specialty Start Date End Date Janee Mitchell APRN [address] [place] [address] PCP - General Family Medicine 03/12/16 documented as of this encounter
--- OUTSIDE RECORDS SUMMARY | 2024-02-23 13:19 | XMS_ITS | Encounter Summary ---
[place] [address] Care Team Providers Care Early Childhood Lead Teacher Name Role Phone Laura Reardon MD Primary Care Provider [phone] Encounter Details Date Type Department Care Team (Late st Contact Info) Description 03/26/2014 [place] [phone] Melani Lal, MANAGER SECURITY [address] [place] [address] Social History Tobacco Use Types Packs/Day Years Used Date Smoking Tobacco: Never Assessed Sex and Gender Information Value Date Recorded Sex Assigned at Not on file Gender Identity Not on file Sexual Orientation Not on file documented as of this encounter Plan of Treatment Not on file documented as of this encounter Procedures Procedure Name Priority Date/Time Associated Diagnosis Comments REQUEST FOR 2ND READ MAMMO Routine 03/26/2014 2:30 PM EST documented in this encounter Results * Request for 2nd read Mammo (03/26/2014 2:30 PM EST) Anatomical Region Laterality Modality Other 03/26/2014 2:30 PM EST Narrative 03/29/2014 10:12 PM EST INTERPRETATION OF OUTSIDE BILATERAL MAMMOGRAMS (PERFORMED ON 03/08/14 AND 03/23/14) FROM [facility] DATED 03/27/14: ?? DIAGNOSTIC IMAGING SUMMARY: ?? LEFT BREAST LESION 1: INCOMPLETE (BIRADS Category 0). ?? Finding: Group of microcalcifications. ?? Size: 3mm. ?? Location: Lateral central Left breast at 0300, 3cm from the nipple. ?? Recommendation: Magnification views of the Left breast calcifications are recommended given the differences in technique; Left mag CC and ML views are recommended to evaluate these calcifications. ?? RIGHT BREAST: This is a (BIRADS Category 1) NEGATIVE Right mammogram. The next Right mammogram is recommended with the frequency dependent on the patient's age and breast cancer risk factors. ?? NARRATIVE: ?? CLINICAL INDICATION: I have been asked to consult on this patient by WOODROW Dixon because she believes a review of this study may change or alter the care of this patient. ?? OUTSIDE CLINICAL HISTORY: BIRADS Category 3 probably benign Left breast for calcifications. ?? TECHNIQUE: Bilateral mammogram dated 03/08/14 with diagnostic Left mammogram views dated 03/23/14 from [facility] in [place], [place] are reviewed. ?? FINDINGS: ? LEFT BREAST: This is a (BIRADS Category 0) INCOMPLETE Left mammogram for a group of microcalcifications in the lateral central Left breast. The remainder of the Left breast is unremarkable. ?? RIGHT BREAST: This is a (BIRADS Category 1) NEGATIVE Right mammogram. There is an unremarkable fibroglandular pattern in the Right breast. ?? The breasts are extremely dense which greatly limits the sensitivity of mammography for the detection of malignancy. ? Procedure Note Mame Giordano MD - 03/29/2014 INTERPRETATION OF OUTSIDE BILATERAL MAMMOGRAMS (PERFORMED ON 03/08/14 AND 03/23/14) FROM [facility] DATED 03/27/14: DIAGNOSTIC IMAGING SUMMARY: LEFT BREAST LESION 1: INCOMPLETE (BIRADS Category 0). Finding: Group of microcalcifications. Size: 3mm. Location: Lateral central Left breast at 0300, 3cm from the nipple. Recommendation: Magnification views of the Left breast calcifications are recommended given the differences in technique; Left mag CC and ML viewsare recommended to evaluate these calcifications. RIGHT BREAST: This is a (BIRADS Category 1) NEGATIVE Right mammogram. Thenext Right mammogram is recommended with the frequency dependent on thepatient's age and breast cancer risk factors. NARRATIVE: CLINICAL INDICATION: I have been asked to consult on this patient by WOODROW Dixon because she believes a review of this study may change oralter the care of this patient. OUTSIDE CLINICAL HISTORY: BIRADS Category 3 probably benign Left breastfor calcifications. TECHNIQUE: Bilateral mammogram dated 03/08/14 with diagnostic Leftmammogram views dated 03/23/14 from [facility] in [place], [place] are reviewed. FINDINGS: LEFT BREAST: This is a (BIRADS Category 0) INCOMPLETE Left mammogram for a group of microcalcifications in the lateral central Left breast. Theremainder of the Left breast is unremarkable. RIGHT BREAST: This is a (BIRADS Category 1) NEGATIVE Right mammogram.There is an unremarkable fibroglandular pattern in the Right breast. The breasts are extremely dense which greatly limits the sensitivity of mammography for the detection of malignancy. Melani Lal MANAGER SECURITY IMG OUTSIDE INTERP RETATION ORDERABLES documented in this encounter Visit Diagnoses Not on filedocumented in this encounter Care Teams Early Childhood Lead Teacher Relationship Specialty Start Date End Date Laura Reardon MD PCP - General 03/25/10 04/19/14 documented as of this encounter
--- OUTSIDE RECORDS SUMMARY | 2024-02-23 13:19 | XMS_ITS | Encounter Summary ---
[place] [address] Care Team Providers Care Manager Sharepoint Name Role Phone LukaszEsdenise Zamudio APRN Primary Care Provider [phone] Encounter Details Date Type Department Care Team (Latest Contact Info) Description 08/27/2014 11:00 AM EDT Ancillary Appointment [place] [phone] Kranthi Abdul, [place] Varicose veins of lower extremities with other complications Social History Tobacco Use Types Packs/Day Years Used Date Smoking Tobacco: Never Assessed Sex and Gender Information Value Date Recorded Sex Assigned at Not on file Gender Identity Not on file Sexual Orientation Not on file documented as of this encounter Plan of Treatment Not on file documented as of this encounter Procedures Procedure Name Priority Date/Time Associated Diagnosis Comments UNLATERAL VALVULAR INCOMP Routine 08/27/2014 11:09 AM EDT Varicose veins of lower extremities with other complications documented in this encounter Results * LE Unilateral Valvular Incomp Study (08/27/2014 11:09 AM EDT) VB Text Report Department: Vascular Surgery Lab Patient: [id number] (MIRIAM BETANCOURT) CPT Code: 18031 ICD-9: 454.8 Referring Physician: BRAYDEN العلي Indication: ?? Right lower extremity painful varicosities. ICD9 Diagnosis Code: 454.8 Findings: Right ?Reflux?Diameter (mm) ??Depth (mm) ?? Common Femoral Vein ?Reflux ? Femoral Vein ? Competent ? Popliteal ?Competent ? Posterior Tibial Vein ??Competent ? GSV, Near SFJ ?Reflux ?10.1 ? 9.6 ?? GSV, Proximal Thigh ?Reflux ? 7.0 ? 8.8 ?? GSV, Mid Thigh ? Reflux ? 6.2 ? 7.8 ?? GSV, Distal Thigh ?Reflux ? 9.8 ? 8.1 ?? GSV, ??Knee ? Reflux ? 6.6 ? 6.6 ?? GSV Prox Calf ?Reflux ? 6.0 ? 6.4 ?? GSV, Mid Calf ?Reflux ? GSV, Distal Calf ? Reflux ? SSV ?Competent ? Interpretation: Right: The great saphenous vein is incompetent (>1 second) from groin to foot. The common femoral vein is incompetent (>1.5 seconds). No significant reflux noted in the femoral vein in the thigh, popliteal, posterior tibial or the short saphenous vein. No evidence of deep venous thrombus (fem-pop). Comparison: ??No previous study in our vascular lab database for comparison. Electronically Signed by: BASIM WILKS on 2014-08-27 02:09:23 PM [facility] VB Text Report End of Report [facility] 08/27/2014 11:0 9 AM EDT Brayden العلي DO [facility] documented in this encounter Visit Diagnoses Diagnosis Varicose veins of lower extremities with other complications documented in this encounter Care Teams Manager Sharepoint Relationship Specialty Start Date End Date Melani Lal APRN PCP - General 04/20/14 03/11/16 documented as of this encounter
--- OUTSIDE RECORDS SUMMARY | 2024-02-23 13:19 | XMS_ITS | Encounter Summary ---
Author Organization Formerly [facility] [place] [address] Care Team Providers Care Claim Clinician Name Role Phone Janee Mitchell APRN Primary Care Provider Encounter Details Date Type Department Care Team (Late st Contact Info) Description 03/12/2016 11:40 AM EST Clinical Support Same Day at [facility] [place] [id number] Social History Tobacco Use Types Packs/Day Years Used Date Smoking Tobacco: Former Cigarettes 0.1 3 1 05/12/1982 - 03/12/1986 Smokeless Tobacco: Never Sex and Gender Information Value Date Recorded Sex Assigned at Not on file Gender Identity Not on file Sexual Orientation Not on file documented as of this encounter Progress Notes * Dru Medellin, RN - 03/12/2016 11:40 AM EST PAT questionnaire reviewed with patient while in Pre Admission testing. Pre- operative instruction booklet reviewed. Patient verbalizes a good understanding of all information reviewed. Patient has had general anesthesia previously at another facility without a problem. PLAN: Testing: Blood work + T&S Procedure date: 03/23 Declan documented in this encounter Plan of Treatment Not on file documented as of this encounter Visit Diagnoses Not on filedocumented in this encounter Care Teams Claim Clinician Relationship Specialty Start Date End Date Janee Mitchell, BREAKFAST ATTENDANT [address] [place] [address] PCP - General Family Medicine 03/12/16 documented as of this encounter
--- OUTSIDE RECORDS SUMMARY | 2024-02-23 13:19 | XMS_ITS | Encounter Summary ---
Author Organization [facility] [place] [address] Care Team Providers Care Cardiovascular Surgical Tech Name Role Phone Laura Reardon MD Primary Care Provider [phone] Encounter Details Date Type Department Care Team (Late st Contact Info) Description 03/26/2014 External Results XRay at [address] [place] [address] Provider, Scanning Social History Tobacco Use Types Packs/Day Years Used Date Smoking Tobacco: Never Assessed Sex and Gender Information Value Date Recorded Sex Assigned at Not on file Gender Identity Not on file Sexual Orientation Not on file documented as of this encounter Plan of Treatment Not on file documented as of this encounter Procedures Procedure Name Priority Date/Time Associated Diagnosis Comments MAMMOGRAM SCAN Routine 03/23/2014 MAMMOGRAM SCAN Routine 03/08/2014 documented in this encounter Results * Scan Doc: Mammogram (03/23/2014) Anatomical Region Laterality Modality Other Scanning Provider MEDIA MGR SCAN EXT O RDR/RSLT * Scan Doc: Mammogram (03/08/2014) Anatomical Region Laterality Modality Other Scanning Provider MEDIA MGR SCAN EXT O RDR/RSLT documented in this encounter Visit Diagnoses Not on filedocumented in this encounter Care Teams Cardiovascular Surgical Tech Relationship Specialty Start Date End Date Laura Reardon MD PCP - General 03/25/10 04/19/14 documented as of this encounter
--- OUTSIDE RECORDS SUMMARY | 2024-02-23 13:19 | XMS_ITS | Encounter Summary ---
Author Organization [facility] Address [facility] [place] [address] Care Team Providers Care Truck Rental Manager Name Role Phone Laura Reardon MD Primary Care Provider [phone] Encounter Details Date Type Department Care Team (Latest Contact Info) Description 03/26/2014 2:25 PM EST - 03/26/2014 11:59 PM EST Hospital Encounter XRay at [address] [place] [address] CL[address], DR [facility] Discharge Disposition: Home Social History Tobacco Use [...] on filedocumented in this encounter Care Teams Truck Rental Manager Relationship Specialty Start Date End Date Laura Reardon MD PCP - General 03/25/10 04/19/14 documented as of this encounter
--- OUTSIDE RECORDS SUMMARY | 2024-02-23 13:19 | XMS_ITS | Encounter Summary ---
Author Organization Counts Include [facility] Address [facility] [place] [address] Care Team Providers Care Edge Kitter Name Role Phone SohaJanee laurent APRN Primary Care Provider [phone] Reason for Visit * Auth/Cert Specialty Diagnoses / Procedures Referred By Contac t Referred To Contact Diagnoses Intra-abdominal and pelvic swelling, mass and lump, unspecified site PELVIC MASS Procedures PRO LAP, RMV ADNEXAL STRUCTURE PRO TOTAL ABDOM HYSTERECTOMY PRO REMOVAL, ABDOMEN LYMPH NODE, STAGING LAPAROSCOPY, REMOVAL OF ADNEXA @HYSTERECTOMY, TOTAL ABD., W W/O BSO @LYMPHADENECTOMY, LIMITED FOR STAGING, RETROPERITONEAL Referral ID Status Reason Start Date Expiration Date Visits Re quested Visits Authorized [id number] 1 1 Encounter Details Date Type Department Care Team (Latest Contact Info) Description 03/23/2016 12:29 PM EST - 03/23/2016 8:10 PM [facility] Hospital Encounter [place] [address] Helene Manriquez MD [facility] [place] [address] Pelvic mass in female Discharge Disposition: Home Social History Tobacco Use [...] Sign Reading Time Taken Comments Blood Pressure 110/66 03/23/2016 6:00 PM EST Pulse 62 03/23/2016 1:06 PM EST Temperature 37.1 ??C (98.8 ??F) 03/23/2016 5:00 PM ES T Respiratory Rate 16 03/23/2016 6:00 PM EST Oxygen Saturation 95% 03/23/2016 6:00 PM EST Inhaled Oxygen Concentration - - [...] PM EST PATIENT DISCHARGE INSTRUCTIONS Our secretary receptionist will call you to schedule you post-operative appointment in 3-[address] Manriquez Gynecology Oncology phone number: [phone] Call your doctor if you develop: --A [...] ORAL Take by mouth as needed. AA COMB.NO3/B/MV-AO4/MN/AR N AA (B TCNDIYA-ALA-FF COMB3-AO CB4 ORAL) Take by mouth as [...] MD - 03/23/2016 1:06 PM EST Inpatient SMASHER - Admission Interval Note I have reviewed [...] Operative Note Patient Name: Miriam Rawls : [id number] MR#: [id number] Case Date: 03/23/2016 Surgeon: Surgeon(s) and Role: [...] Manriquez MD - 03/23/2016 4:55 PM EST [facility] Operative Note Patient Name: Miriam Rawls : [id number] MR#: [id number] Case Date: 03/23/2016 Surgeon: Surgeon(s) and Role: [...] PATHOLOGY REPORT Routine 03/23/2016 2:56 PM EST NON-SOFTWARE TECHNICAL LEAD FINAL REPORT Routine 03/23/2016 2:49 PM EST [...] MD PATHOLOGY/CYTOLOGY O PANCHO Performing Organization Address [facility] Co de Phone Number [facility] [place] [address] * Specimen to Pathology (surgical or derm) (03/23/2016 2:59 PM EST) AP Specimen 03/23/2016 2:59 PM EST 03/23/2016 2:59 PM EST Narrative [facility] - 03/23/2016 2:59 PM EST Specimen requisition ordered. ??Separate Pathology report to follow Helene Manriquez MD PATHOLOGY/CYTOLOGY O RDLOUIS Performing Organization Address [facility]/ZIP Co de Phone Number [facility] [place] [address] * Surgical Pathology Report (03/23/2016 2:56 PM EST) Final Diagnosis [id number] ?Location: [facility]; [place]; A The signing pathologist has (i) examined [...] 1 remnant; (2) AFS 2 remnant; (3) home furnishings sales representative tube; (4-13) ovary with cyst.(R13) B [...] BFS2 remnants; (3-7) remaining ovarian tissue; (8-9) Electrical Design Technologist tubal tissue. (R9) ?rm _ ?Frozen Section [...] MD PATHOLOGY/CYTOLOGY O PANCHO Performing Organization Address [facility] Co de Phone Number [facility] [place] [address] * Non-Lifter Driver Final Report (03/23/2016 2:49 PM EST) Diagnosis Discussion [id number] ?Location: [facility]; [facility]; A The signing pathologist has (i) examined the relevant preparation(s) for the specimen(s) and (ii) rendered or confirmed the diagnosis(es). . ? Non-Lifter Driver Final DIAGNOSIS Negative for Malignancy Electronically signed [...] 2:49 PM EST Helene Manriquez MD PATHOLOGY/CYTOLOGY O PANCHO Performing Organization Address [facility] Co de Phone Number [facility] [place] [address] * Cytopathology Non-Gynecological (03/23/2016 2:49 PM EST) AP Specimen 03/23/2016 2:49 PM EST 03/23/2016 2:49 PM EST Narrative [facility] - 03/23/2016 2:49 PM EST Specimen requisition ordered. ??Separate Pathology report to follow Helene Manriquez MD PATHOLOGY/CYTOLOGY O RDERABLES Performing Organization Address [facility] Co de Phone Number [facility] [place] [address] * Lyme IgG & IgM Antibody (03/23/2016 12:53 PM EST) Lyme Antibody Neg Neg [facility] Blood specimen (specimen) 03/23/2016 12:53 PM EST 03/24/2016 7:11 AM EST Narrative Resulting Agency Comment Spec In Lab Helene Manriquez MD IMMUNOLOGY ORDERABLE S Performing Organization Address [facility] Phone Number [facility] [place] [address] * Hepatic Function Panel (03/23/2016 12:53 PM [...] Manriquez MD CHEMISTRY ORDERABLES Performing Organization Address [facility] Co [place] [address] documented in this encounter Visit Diagnoses Diagnosis Pelvic mass in female Abdominal or pelvic swelling, mass or lump, unspecified site documented in this encounter Administered Medications Inactive Administered Medications - up to 3 most recent administrations Medication Order MAR Action Action Date Dose Rate Site acetaminophen (TYLENOL) tablet 1,000 mg 1,000 mg, Oral, ONCE, 1 dose, On 03/23/16 at 1330, Administer with SIP of H2O only., Day of Surgery (Day of Procedure), Routine Given 03/23/2016 1:43 PM EST 1,000 mg gabapentin (NEURONTIN) capsule 600 mg 600 mg, Oral, ONCE, 1 dose, On Wed03/23/16 at 1330, Administer with SIP of H2O only., Day of Surgery (Day of Procedure), Routine Given 03/23/2016 1:43 PM EST 600 mg lactated ringers infusion 1,000 mL 1,000 mL, at 100 mL/hr, Intravenous, CONTINUOUS, Starting on Wed03/23/16 at 1330, Until Wed03/23/16 at 1958, Day of Surgery (Day of Procedure) New Bag 03/23/2016 1:44 PM EST 1,000 mLs 100 mL/hr ondansetron (ZOFRAN) injection 4 mg 4 mg, Intravenous, EVERY 30 MIN PRN, Starting on Wed03/23/16 at 1622, Until Wed03/23/16 at 1958, Nausea, May repeat 4 mg once in 30 minutes. If multiple antiemetics ordered, use ondansetron first and if ineffective use prochlorperazine second and if ineffective use promethazine, PACU Recovery Given 03/23/2016 6:01 PM EST 4 mg ondansetron (ZOFRAN-ODT) oral disintegrating tablet 8 mg 8 mg, Oral, ONCE, 1 dose, On Wed03/23/16 at 1330, Day of Surgery (Day of Procedure), Routine Given 03/23/2016 1:43 PM EST 8 mg oxyCODONE (ROXICODONE) immediate release tablet 5 mg 5 mg, Oral, EVERY 3 HOURS PRN, Starting on Wed03/23/16 at 1701, Until Wed03/23/16 at 2210, Pain, May repeat once within 30-60 minutes if pain unrelieved., Routine Given 03/23/2016 6:09 PM EST 5 mg phenazopyridine (PYRIDIUM) tablet 200 mg 200 mg, Oral, ONCE, On Wed03/23/16 at 1330, 1 dose, Day of Surgery (Day of Procedure) Given 03/23/2016 1:43 PM EST 200 mg documented in this encounter Active and [...] Wed03/23/16 at 1622, Until Wed03/23/16 at 1958, For moderate pain (4-6) give: 0.2 mg [...] at 1622, 2 doses, Until Wed03/23/16 at 1957, If multiple antiemetics ordered, use ondansetron first and if ineffective use prochlorperazine second and if ineffective use promethazine, PACU Recovery sodium chloride 0.9 % flush 5-20 mL 5-20 mL, Intravenous, EVERY 1 MIN PRN, Starting on Wed03/23/16 at 1304, Until Wed03/23/16 at 1957, flush, Flush pertains to all indwelling lines. Flush per protocol found in the job aid using the link provided on this medication record., Day of Surgery (Day of Procedure), Routine sodium chloride 0.9 % flush 5-20 mL 5-20 mL, Intravenous, EVERY 1 MIN PRN, Starting on Wed03/23/16 at 1304, Until Wed03/23/16 at 1957, flush, Flush pertains to all indwelling lines. [...] at 1622, Until Wed03/23/16 at 1957, for 1-4 pain score Hold for respiratory [...] Recovery documented in this encounter Care Teams Edge Kitter Relationship Specialty Start Date End Date Janee Mitchell, SOLAR PANEL INSTALLATION SUPERVISOR [address] [place] [address] PCP - General Family Medicine 03/12/16 documented as of this encounter
--- OUTSIDE RECORDS SUMMARY | 2024-02-23 13:19 | XMS_ITS | Encounter Summary ---
Author Organization [place] [address] Care Team Providers Care Trackless Trolley Driver Name Role Phone Laura Reardon MD Primary Care Provider [phone] Encounter Details Date Type Department Care Team (Late st Contact Info) Description 03/23/2014 [place] [address] Carla Plunkett MD [facility] [place] [address] Social History Tobacco Use Types Packs/Day Years Used Date Smoking Tobacco: Never Assessed Sex and Gender Information Value Date Recorded Sex Assigned at Not on file Gender Identity Not on file Sexual Orientation Not on file documented as of this encounter Plan of Treatment Not on file documented as of this encounter Visit Diagnoses Not on filedocumented in this encounter Care Teams Trackless Trolley Driver Relationship Specialty Start Date End Date Laura Reardon MD PCP - General 03/25/10 04/19/14 documented as of this encounter
--- OUTSIDE RECORDS SUMMARY | 2024-02-23 13:19 | XMS_ITS | Encounter Summary ---
Author Organization [facility] Address [facility] [place] [address] Care Team Providers Care Radio Disc Jockey Name Role Phone Melani Lal APRN Primary Care Provider [phone] Encounter Details Date Type Department Care Team (Late st Contact Info) Description 03/28/2014 [place] [address] Mame Giordano MD [facility] DIAGNOSTIC [place] [address] Other (abnormal) findings on radiological examination of breast Social History Tobacco Use Types Packs/Day Years Used Date Smoking Tobacco: Never Assessed Sex and Gender Information Value Date Recorded Sex Assigned at Not on file Gender Identity Not on file Sexual Orientation Not on file documented as of this encounter Plan of Treatment Not on file documented as of this encounter Results * Mammo direct digital [...] mammogram performed on 03/08/14 and 03/23/14 from [facility] dated 03/27/14 for a 3mm group of [...] mammogram performed on 03/08/14 and 03/23/14 from [facility] dated 03/27/14 for a3mm group of microcalcifications [...] (abnormal) findings on radiological examination of breast Other (abnormal) findings on radiological examination of breast documented in this encounter Care Teams Radio Disc Jockey Relationship Specialty Start Date End Date Melani Lal APRN PCP - General 04/20/14 03/11/16 documented as of this encounter
[2024-02-23 14:44] LABS: Abs Immature Grans 0.01 10^3/uL (0.0-0.06); Absolute Basophil Count 0.03 10^3/uL (0.0-0.2); Absolute Eosinophil Count 0.13 10^3/uL (0.0-0.7); Absolute Lymphocyte Count 1.12 10^3/uL (1.2-3.4); Absolute Monocyte Count 0.44 10^3/uL (0.1-0.8); Absolute Neutrophil Count 4.04 10^3/uL (1.2-6.7); Basophils % 0.5 %; Eosinophils % 2.3 %; HCT 42.2 % (36.0-46.0); HGB 14.5 g/dL (11.2-15.7); Immature Grans % 0.2 %; Lymphocytes % 19.4 %; MCHC 34.4 % (32.0-36.0); MCV 96 fL (80-95); MPV 9.3 fL (8.0-11.0); Monocytes % 7.6 %; Platelet Count 304 10^3/uL (130-400); RBC 4.39 10^6/uL (3.93-5.22); RDW-SD 42.9 fL; WBC 5.77 10^3/uL (4.4-10.8)
[2024-02-23 15:04] LABS: ALT 40 U/L (14-59); AST 21 U/L (15-37); Albumin 3.9 g/dL (3.4-5.0); Alkaline Phosphatase 152 U/L (46-116); BUN 10 mg/dL (7-18); Bilirubin, Total 0.53 mg/dL (0.2-1.0); CREATININE 0.9 mg/dL (0.55-1.02); Calcium 9.8 mg/dL (8.5-10.1); Chloride 103 mmol/L (98-107); Estimated GFR 71.39 (mL/min/1.73m2); Glucose 101 mg/dL (74-106); Potassium 4.1 mmol/L (3.5-5.1); Sodium 138 mmol/L (136-145)
[2024-02-24 11:57] LABS: Varicella Zoster DNA Result Positive (Negative)
== END 2024-02-23 13:17 | disposition home or self-care (01) ==
LOC: LBN 13:16
PROVIDERS: Visit Provider Physician Assistant Medical
DX: R10.9 Unspecified abdominal pain (principal)
CPT/HCPCS: 80053; 87798; 85025

== ENCOUNTER 2025-01-22 16:35 | Emergency (ER) | payer MEDICARE, SELFPAY ==
[2025-01-22 16:41] VITALS: BP 170/103; PULSE 69; RESP 18; TEMP 36.4; O2SAT 98
[2025-01-22] MEDS: predniSONE 20 MG TAB 40 MG PO (17:04)
[2025-01-22] MEDS: diphenhydrAMINE 25 MG CAP 50 MG PO ×2 (17:04→19:02)
[2025-01-22 18:45] VITALS: RESP 18
[2025-01-22] MEDS: EPINEPHrine 0.3 MG KIT IM (19:01)
[2025-01-22 19:04] VITALS: BP 140/88; PULSE 60; RESP 16; O2SAT 98
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
== END 2025-01-22 19:05 | disposition home or self-care (01) ==
PROVIDERS: Emergency Provider Physician Assistant
DX: T63.461A Toxic effect of venom of wasps, accidental (unintentional), initial encounter (principal); Y92.89 Other specified places as the place of occurrence of the external cause
CPT/HCPCS: 96372; 99283; J0165; J7512